=== PATIENT | male | born 1980 | race Caucasian/White ===

== ENCOUNTER 2019-03-18 11:03 | Emergency (ER) | payer SELFPAY ==
[~2019-03-18] VITALS: Ht 160 cm; Wt 72.6 kg
--- NOTE | 2019-03-18 11:20 | ED Cough/URI ---
General Chief Complaint: Cough/Cold/Flu Symptoms Stated Complaint: COUGH Source: patient Exam Limitations: no limitations History of Present Illness Date Seen by Provider: March 18, 2019 Time Seen by Provider: 11:08 Initial Comments 38-year-old white male with history of productive cough and congestion. with brown and greenish sputum. Has had repetitive cough. Describes nasal congestion and sore throat. No known fever or chills. Does not smoke Allergies and Home Medications Allergies Coded Allergies: haloperidol (Verified Allergy, Unknown, 03/18/19) Patient Home Medication List Home Medication List Reviewed: Yes Review of Systems Review of Systems Constitutional: malaise EENTM: see HPI Respiratory: see HPI, cough Cardiovascular: no symptoms reported Gastrointestinal: no symptoms reported Genitourinary: no symptoms reported Musculoskeletal: no symptoms reported Skin: no symptoms reported Psychiatric/Neurological: No Symptoms Reported Hematologic/Lymphatic: No Symptoms Reported Immunological/Allergic: no symptoms reported Past Qmhbcwb-Xajoya-Gxtmql Hx Past Med/Social Hx: Reviewed Nursing Past Med/Soc Hx Physical Exam Vital Signs - First Documented 03/18/19 11:05 Temp 97.7 Pulse 82 Resp 18 B/P (MAP) 123/73 (90) Pulse Ox 98 O2 Delivery Room Air Capillary Refill : Height: '" Weight: lbs. oz. kg; BMI Method: General Appearance: WD/WN, no apparent distress Eyes: Bilateral Eye Normal Inspection, Bilateral Eye PERRL, Bilateral Eye EOMI , Bilateral Eye Abnormal EOM HEENT: PERRL/EOMI, TMs normal; No scleral icterus (R), No scleral icterus (L); pharyngeal erythema; No tonsillar exudate Neck: non-tender, full range of motion, supple, normal inspection, carotid bruit Respiratory: chest non-tender, no respiratory distress, no accessory muscle use , rhonchi (diffusely) Cardiovascular: regular rate, rhythm, no edema, no gallop, no JVD, no murmur Gastrointestinal: normal bowel sounds, non tender, soft, no organomegaly, no pulsatile mass Extremities: normal range of motion, non-tender, normal inspection, no pedal edema Neurologic/Psychiatric: candy spreader II-XII nml as tested, no motor/sensory deficits, alert, normal mood/affect, oriented x 3 Skin: normal color, warm/dry Lymphatic: no adenopathy Progress/Results/Core Measures Suspected Sepsis SIRS Temperature: Pulse: Respiratory Rate: Blood Pressure / Mean: Results/Orders Micro Results Microbiology 03/18/19 Influenza Types A,B Antigen (MARTINA) - Final, Complete My Orders Orders - SANDRA FERNANDO MD Influenza A And B Antigens (03/18/19 11:15) Chest Pa/Lat (2 View) (03/18/19 11:15) Vital Signs/I&O 03/18/19 11:05 Temp 97.7 Pulse 82 Resp 18 B/P (MAP) 123/73 (90) Pulse Ox 98 O2 Delivery Room Air Capillary Refill : Progress Note : Time: 11:19 Progress Note Will test for flu and obtain CXR. Discussed with patient who understands and agrees with plan. Diagnostic Imaging Diagonstic Imaging: Xray (chest) Comments No acute changes. JDO Reviewed: Reviewed by Me Departure Impression Primary Impression: Upper respiratory infection Qualified Codes: J00 - Acute nasopharyngitis [common cold] Additional Impression: Bronchitis Disposition: 01 HOME, SELF-CARE Condition: Stable Departure-Patient Inst. Decision time for Depature: 11:55 Referrals: NO,LOCAL PHYSICIAN (PCP/Family) Primary Care Physician 2-3 days, sooner if needed Patient Instructions: Bacterial Upper Respiratory Infection, Adult (DC), Acute Bronchitis, Adult (DC) Scripts Azithromycin (Azithromycin) 250 Mg Tablet 250 MG PO UD, #6 TAB TAKE 2 TABLETS ON DAY ONE THEN TAKE 1 TABLET DAILY FOR FOUR MORE DAYS Prov: SANDRA FERNANDO MD 03/18/19 Work/School Note: Work Release Form Date Seen in the Emergency Department: March 18, 2019 Return to Work: March 19, 2019 Restrictions: No Restrictions SANDRA FERNANDO MD March 18, 2019 11:20
--- NOTE | 2019-03-18 11:55 | Diagnostic Imaging Report ---
INDICATION: Cough and nasal congestion x4 days. TECHNIQUE: Two view chest 11:18 AM CORRELATION STUDY: None FINDINGS: The heart size, mediastinal configuration and pulmonary vasculature are within normal limits. The lungs are clear with no consolidating infiltrate. There is no significant pleural effusion or pneumothorax. Visualized osseous structures are unremarkable. IMPRESSION: 1. Negative for acute abnormality of the chest. Dictated by: Dictated on workstation # [id number]
[2019-03-18] MEDS ORDERED: AZIT250T12 PO (11:58)
[2019-03-18 12:06] VITALS: BP 123/72
--- OUTSIDE RECORDS SUMMARY | 2019-03-18 13:18 | XMS REPORT | Continuity of Care Document ---
Author Organization Unknown Address Unknown Allergies Active Description Code Type Severity Reaction Onset Reported/Identified Relationship to Patient Clinical Status Yes Haldol Drug Allergy N/A N/A 06/25/2014 Yes Haldol NKMA Severe 728.85 01/29/2015 Medications There is no data. Problems Date Dx Coded Attending Type Code Diagnosis Diagnosed By 06/25/2014 YOMI CARLIN DO 296.89 OTHER AND UNSPECIFIED BIPOLAR DISORDER OTHER 06/25/2014 YOMI CARLIN DO 345.10 GENERALIZED CONVULSIVE EPILEPSY WITHOUT INTRACTABLE EPILEPSY 06/25/2014 YOMI CARLIN DO K 401.1 BENIGN ESSENTIAL HYPERTENSION 06/25/2014 YOMI CARLIN DO 530.81 ESOPHAGEAL REFLUX 06/25/2014 YOMI CARLIN DO 296.89 OTHER AND UNSPECIFIED BIPOLAR DISORDER OTHER 06/25/2014 YOMI CARLIN DO 345.10 GENERALIZED CONVULSIVE EPILEPSY WITHOUT INTRACTABLE EPILEPSY 06/25/2014 YOMI CARLIN DO 401.1 BENIGN ESSENTIAL HYPERTENSION 06/25/2014 YOMI CARLIN DO K 530.81 ESOPHAGEAL REFLUX 09/04/2014 YOMI CARLIN DO 729.1 MYALGIA AND MYOSITIS UNSPECIFIED 01/30/2015 Dany Najera Final 305.1 TOBACCO USE DISORDER 01/30/2015 Dany Najera Reason 569.3 HEMORRHAGE OF RECTUM AND ANUS 01/30/2015 Dany Najera Final 578.1 BLOOD IN STOOL 01/30/2015 Dany Najera Final 789.00 ABDOMINAL PAIN, UNSPECIFIED SITE Procedures There is no data. Results Test Result Range CBC WITH DIFF - 12/26/14 15:58 WBC 6.1 10*3/uL 4.3-10.8 RBC 4.41 10*6/uL 4.70-6.10 HGB 13.8 g/dL 14.0-18.0 HCT 40.4 % 42-52 MCV 92 fL 81-99 MCH 31 pg 26-34 MCHC 34 g/dL 31-37 PLATELET COUNT 209 10*3/uL 150-400 RDWCV 13.9 % 11.5-14.5 DIFF TYPE AUTOMATED DIFF NEUTROPHIL % 53 % 36-66 LYMPHOCYTE % 31 % 24-44 MONOCYTE % 12 % 1-10 EOSINOPHIL % 4 % 0-6 BASOPHIL % 1 % 0-2 ABS. NEUTROPHILS 3.2 10*3/uL 1.55-7.13 ABS. LYMPHOCYTES 1.8 10*3/uL 1.0-4.8 ABS. MONOCYTES 0.7 10*3/uL 0.4-1.08 ABS. EOSINOPHILS 0.2 10*3/uL 0.0-0.65 ABS. BASOPHILS 0.1 10*3/uL 0.0-0.11 ABSOLUTE NUCLEATED RBC 0.00 10*3/uL PERCENT NUCLEATED RBC 0 HEPATIC FUNCTION PANEL - 12/26/14 15:58 ALT-SGPT 26 U/L 0-55 AST-SGOT 28 U/L 5-34 TOTAL PROTEIN,SERUM 7.0 g/dL 6-8.3 ALBUMIN 4.1 g/dL 3.6-5.3 ALKALINE PHOSPHATASE 106 U/L 40-150 TOTAL BILIRUBIN 1.0 mg/dL 0.2-1.2 DIRECT BILIRUBIN 0.3 mg/dL 0.0-0.5 LIPASE - 12/26/14 15:58 LIPASE 64 U/L 8-78 BASIC METABOLIC PANEL POCT - 12/26/14 16:07 POC COMMENT SEE NOTES SODIUM POCT 144 mmol/L 138-146 POTASSIUM POCT 4.2 mmol/L 3.5-4.9 CHLORIDE POCT 108 mmol/L 98-109 MEASURED TOTAL CO2 POCT 25 meq/L 24-29 BUN POCT 9 mg/dL 8-26 CREATININE POCT 1.1 mg/dL 0.6-1.3 GLUCOSE POCT 84 mg/dL 70-105 IONIZED CALCIUM POCT 1.13 mmol/L 1.12-1.32 TROPONIN I POCT - 12/26/14 16:07 CARDIAC TROPONIN I POCT <0.02 ng/mL 0.00-0.10 URINALYSIS POC - 12/26/14 16:10 COLOR, URINE POCT YELLOW APPEARANCE, URINE POCT CLEAR GLUCOSE, URINE POCT NEGATIVE mg/dL NEGATIVE BILIRUBIN, URINE POCT NEGATIVE NEGATIVE KETONES, URINE POCT NEGATIVE mg/dL NEGATIVE SPECIFIC GRAVITY, URINE POCT 1.020 1.005-1.030 BLOOD, URINE POCT NEGATIVE NEGATIVE PH, URINE POCT 7.0 5.0-9.0 PROTEIN, URINE POCT NEGATIVE mg/dL NEGATIVE UROBILINOGEN, URINE POCT 0.2 EhrlichU/dL 0.2-1.0 NITRITES, URINE POCT NEGATIVE NEGATIVE LEUKOCYTES, URINE POCT NEGATIVE NEGATIVE STREP THROAT SCREEN (GROUP A) - STREP THROAT CULTURE (GROUP A) - 01/24/15 09: 26 Microbiology Encounters ACCT No. Visit Date/Time Discharge Status Pt. Type Provider Facility Loc./Unit Complaint [id number] 01/29/2015 15:43:00 01/29/2015 18:31:00 [facility], [facility] [id number] 02/05/2018 14:40:00 02/05/2018 23:59:59 CLS Outpatient KATY KING APRN [facility] [id number] 09/04/2014 14:45:00 09/04/2014 23:59:59 CLS Outpatient YOMI CARLIN DO [id number] 06/25/2014 14:46:00 06/25/2014 23:59:59 CLS Outpatient YOMI CARLIN DO [id number] 12/26/2014 13:10:00 12/26/2014 17:20:00 [facility] 12/26/2014 13:10:59 ACT Document Registration [id number] 01/24/2015 09:01:00 Document Registration
--- OUTSIDE RECORDS SUMMARY | 2019-03-18 13:18 | XMS REPORT | Referral Summary ---
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 Role Phone No PCP, Pt States PCP Encounter VC Date(s): 01/29/15 - 01/29/15 [facility] [address] [place] [address] Discharge Diagnosis: Abdominal pain in male Discharge Disposition: Home or Self Care Attending Physician: Dany Najera MD Admitting Physician: Dany Najera MD Vital Signs Most recent to 1 oldest [Reference Range]: Temperature Oral 36.4 degC [35.8-37.3 degC] (01/29/15 3:51 PM) Peripheral Pulse 78 bpm Rate [60-100 bpm] (01/29/15 3:51 PM) Heart Rate Monitored 74 bpm [60-100 bpm] (01/29/15 6:00 PM) Respiratory Rate 16 br/min [14-20 br/min] (01/29/15 6:00 PM) Blood Pressure 123/68 mmHg [90-140/60-90 mmHg] (01/29/15 6:00 PM) Mean Arterial 91 mmHg Pressure, Cuff (01/29/15 6:00 PM) Most recent to 1 oldest [Reference Range]: SpO2 97 % (01/29/15 6:00 PM) Problem List Condition Effective Dates Status Health Status Informant Asthma(Confirmed) Active patient Fibromyalgia(Confirm Active patient ed) HTN Active patient (hypertension)(Confi rmed) Tobacco Active patient user(Confirmed) Allergies, Adverse Reactions, Alerts Substance Reaction Severity Status Haldol 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 Medications doxepin 100 mg oral capsule caps, Oral, Bedtime (once a day), 0 Refill(s) Start Date: 01/29/15 Status: Ordered gabapentin Oral, 0 Refill(s) Start Date: 01/29/15 Status: Ordered omeprazole Oral, Daily, 0 Refill(s) Start Date: 01/29/15 Status: Ordered Pepcid 20 mg oral tablet 1 tabs, Oral, Daily, # 15 tabs, 0 Refill(s) Start Date: 01/29/15 Stop Date: 02/20/15 Status: Ordered propranolol 0 Refill(s) Start Date: 01/29/15 Status: Ordered Remeron Oral, Bedtime (once a day), 0 Refill(s) Start Date: 01/29/15 Status: Ordered Results Hematology Most recent to 1 oldest [Reference Range]: WBC [4.8-10.8 K/uL] 8.4 K/uL (01/29/15 4:45 PM) RBC [4.60-6.20 M/uL] 4.79 M/uL (01/29/15 4:45 PM) Hgb [14.0-18.0 14.3 gm/dL gm/dL] (01/29/15 4:45 PM) Hct [42.0-52.0 %] 42.7 % (01/29/15 4:45 PM) MCV [82.0-99.0 fL] 89.1 fL (01/29/15 4:45 PM) MCH [27.0-32.0 pg] 29.9 pg (01/29/15 4:45 PM) MCHC [32.0-36.0 33.5 gm/dL gm/dL] (01/29/15 4:45 PM) RDW [11.5-14.5 %] 13.0 % (01/29/15 4:45 PM) Platelet [150-400 269 K/uL K/uL] (01/29/15 4:45 PM) MPV [9.4-12.3 fL] 11.5 fL (01/29/15 4:45 PM) Immature 0.1 % Granulocytes (01/29/15 4:45 PM) [0.0-1.0 %] Neutrophils [51-75 49 % %] *LOW* (01/29/15 4:45 PM) Lymphocytes [20-46 31 % %] (01/29/15 4:45 PM) Monocytes [4-11 %] 8 % (01/29/15 4:45 PM) Eosinophils [0-4 %] 12 % *HI* (01/29/15 4:45 PM) Basophils [0-2 %] 1 % (01/29/15 4:45 PM) Neutro Absolute 4.09 THOUS [1.90-7.00 THOUS] (01/29/15 4:45 PM) Lymph Absolute 2.56 THOUS [0.80-3.30 THOUS] (01/29/15 4:45 PM) Turner Absolute 0.67 THOUS [0.30-1.00 THOUS] (01/29/15 4:45 PM) Eos Absolute 1.02 THOUS [0.00-0.50 THOUS] *HI* (01/29/15 4:45 PM) Baso Absolute 0.04 THOUS [0.00-0.20 THOUS] (01/29/15 4:45 PM) Chemistry Most recent to 1 oldest [Reference Range]: Sodium Lvl [136-144 139 mEq/L mEq/L] (01/29/15 4:45 PM) Potassium Lvl 4.0 mEq/L [3.6-5.1 mEq/L] (01/29/15 4:45 PM) Chloride [99-109 107 mEq/L mEq/L] (01/29/15 4:45 PM) CO2 [22-32 mEq/L] 27 mEq/L (01/29/15 4:45 PM) AGAP [3-20] 5 (01/29/15 4:45 PM) BUN [4-20 mg/dL] 10 mg/dL (01/29/15 4:45 PM) Glucose Lvl [70-100 90 mg/dL mg/dL] (01/29/15 4:45 PM) Creatinine Lvl 0.96 mg/dL [0.64-1.27 mg/dL] (01/29/15 4:45 PM) eGFR [>60] >60 2 (01/29/15 4:45 PM) Calcium Lvl 9.2 mg/dL [8.6-10.0 mg/dL] (01/29/15 4:45 PM) Albumin Lvl [3.5-4.8 4.3 gm/dL gm/dL] (01/29/15 4:45 PM) Total Protein 7.4 gm/dL [6.1-7.9 gm/dL] (01/29/15 4:45 PM) Globulin [1.9-4.3 3.1 gm/dL gm/dL] (01/29/15 4:45 PM) ALT [17-63 unit/L] 24 unit/L (01/29/15 4:45 PM) AST [15-41 unit/L] 21 unit/L (01/29/15 4:45 PM) Alk Phos [26-104 94 unit/L unit/L] (01/29/15 4:45 PM) Bili Total [0.2-1.2 0.9 mg/dL 1 mg/dL] (01/29/15 4:45 PM) Sodium Venous 140 mEq/L [136-144 mEq/L] (01/29/15 4:52 PM) Potassium Venous 4.0 mEq/L 3 [3.6-5.1 mEq/L] (01/29/15 4:52 PM) Calcium Ionized 1.15 mmol/L Venous [1.19-1.41 *LOW* mmol/L] (01/29/15 4:52 PM) Total CO2 Venous 24 mEq/L [25-29 mEq/L] *LOW* (01/29/15 4:52 PM) HGB Venous NPT 14.3 gm/dL [14.0-18.0 gm/dL] (01/29/15 4:52 PM) HCT Venous 42.0 % [42.0-52.0 %] (01/29/15 4:52 PM) Glucose Venous 88 mg/dL [70-100 mg/dL] (01/29/15 4:52 PM) BUN Venous [4-20] 10 (01/29/15 4:52 PM) Creatinine Venous 1.0 mg/dL [0.7-1.2 mg/dL] (01/29/15 4:52 PM) Venous CL [99-109 106 mEq/L mEq/L] (01/29/15 4:52 PM) Anion Gap, Fletcher 10 [3-20] (01/29/15 4:52 PM) 1Result Comment: Naproxen, specifically the metabolite O-desmethylnaproxen, may cause spurious elevation in Total Bilirubin levels. 2Result Comment: Multiply eGFR results by 1.21 for race. 3Result Comment: This test was performed on a whole blood specimen. The presence or absence of hemolysis cannot be assessed. Hemolysis can falsely elevate potassium levels. Normals are for venous specimens only. Urinalysis Most recent to 1 oldest [Reference Range]: UA Color Lt Yellow (01/29/15 4:46 PM) UA Appear Sl Cloudy (01/29/15 4:46 PM) UA pH [5.0-8.0] 8.0 (01/29/15 4:46 PM) UA Leuk Est Negative [Negative] (01/29/15 4:46 PM) UA Nitrite Negative [Negative] (01/29/15 4:46 PM) UA Protein Negative [Negative] (01/29/15 4:46 PM) UA Glucose Negative [Negative] (01/29/15 4:46 PM) UA Ketones Negative [Negative] (01/29/15 4:46 PM) UA Urobilinogen Negative [<1.0] (01/29/15 4:46 PM) UA Bili [Negative] Negative (01/29/15 4:46 PM) UA Blood [Negative] Negative (01/29/15 4:46 PM) UA Spec Grav 1.025 [1.003-1.030] (01/29/15 4:46 PM) Type Clean Catch (01/29/15 4:46 PM) Immunizations No data available for this section Procedures No data available for this section Social History Social History Type Response Smoking Status Current every day smoker; Type: Cigarettes; Tobacco use per day: Less than Pack Assessment and Plan No data available for this section
== END 2019-03-18 12:06 | disposition home or self-care (01) ==
LOC: EDUNIT# 11:03 → ER FS 11:05
DX: J06.9 Acute upper respiratory infection, unspecified (principal); J40 Bronchitis, not specified as acute or chronic; Z88.8 Allergy status to other drugs, medicaments and biological substances
CPT/HCPCS: 71046; 87804

== ENCOUNTER 2019-06-06 20:59 | Emergency (ER) | payer SELFPAY ==
[~2019-06-06] VITALS: Ht 160 cm; Wt 79.4 kg
[~2019-06-06 20:59] MED LIST: AZIT250T12 PO
--- OUTSIDE RECORDS SUMMARY | 2019-06-06 21:03 | XMS REPORT | Continuity of Care Document ---
Author Organization Unknown Address Unknown Allergies Active Description Code Type Severity Reaction Onset Reported/Identified Relationship to Patient Clinical Status Yes Haldol Drug Allergy N/A N/A 06/25/2014 Yes Haldol NKMA Severe 728.85 01/29/2015 Yes haloperidol [id number] Drug Allergy Unknown N/A 03/18/2019 Medications There is no data. Problems Date [...] Najera Final 789.00 ABDOMINAL PAIN, UNSPECIFIED SITE 03/18/2019 KASSIE FANG, SANDRA Cortez Ot J06.9 ACUTE UPPER RESPIRATORY INFECTION, UNSPE 03/18/2019 KASSIE FANG, SANDRA Cortez Ot J40 BRONCHITIS, NOT SPECIFIED ACUTE OR CH 03/18/2019 SANDRA FERNANDO MD Ot R05 COUGH 03/18/2019 KASSIESANDRA LEPE MD, Ot Z88.8 ALLERGY STATUS TO OT DRUG/MEDS/BIOL SUB 03/20/2019 SANDRA FERNANDO MD, Ot J06.9 ACUTE UPPER RESPIRATORY INFECTION, UNSPE 03/20/2019 SANDRA FERNANDO MD, Ot J40 BRONCHITIS, NOT SPECIFIED ACUTE OR CH 03/20/2019 SANDRA FERNANDO MD, Ot R05 COUGH 03/20/2019 SANDRA FERNANDO MD, Ot Z88.8 ALLERGY STATUS TO OT DRUG/MEDS/BIOL SUB Procedures There is no data. Results Test [...] NEGATIVE NEGATIVE LEUKOCYTES, URINE POCT NEGATIVE NEGATIVE Influenza virus A and B antigen detection - 03/18/19 11:21 FLU RESULT NEGATIVE FOR INFLUENZA A AND B ANTIGENS BY IA NRG Encounters ACCT No. Visit Date/Time Discharge Status Pt. Type Provider Facility Loc./Unit Complaint [id number] 01/29/2015 15:43:00 01/29/2015 18:31:00 DIS [facility]vomiting [id number] 03/18/2019 11:05:00 03/18/2019 12:06:00 DIS Emergency KASSIE FANG, SANDRA Cortez [facility] ER FS COUGH [id number] 09/04/2014 14:45:00 09/04/2014 23:59:59 CLS Outpatient YOMI CARLIN DO [id number] 06/25/2014 14:46:00 06/25/2014 23:59:59 CLS Outpatient YOMI CARLIN DO [id number] 12/26/2014 13:10:00 12/26/2014 17:20:00 DIS Emergency [facility]
--- OUTSIDE RECORDS SUMMARY | 2019-06-06 21:03 | XMS REPORT ---
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 Role Phone Migration, Doctor Unavailable Unavailable PROBLEMS Type Condition ICD9-CM Code [id number] Code Onset Dates Condition Status SNOMED Code Problem Other eczema L30.8 Active 71589504 ALLERGIES No Information ENCOUNTERS Encounter Location Date Diagnosis [facility] [address] [id number] [address] Jan, Other eczema L30.8 [facility] [id number] [place] [address] Jun, Screen for STD (sexually transmitted disease) V74.5 [facility] [id number] [place] [address] Feb, [facility] [id number] [place] [address] Feb, [facility] [id number] [address] Nov, [facility] [address] [address] Nov, [facility] [address] [address] Nov, [facility] [address] [address] Nov, [facility] [id number] [place] [address] Oct, [facility] [address] [address] Oct, [facility] [address] [address] Oct, [facility] [address] [facility] [id number], [place] [address] Oct, [facility] [address] [id number], [place] [address] Sep, [facility] [address] [facility] [id number], [place] [address] Sep, [facility] [address] [id number], [place] [address] Aug, [facility] [address] [facility] [id number], [place] [address] Aug, [facility] [address] [facility] [id number], [place] [address] Aug, [facility] [address] [facility] [id number], [place] [address] Aug, [facility] [address] [facility] [id number], [place] [address] Jul, [facility] [address] [facility] [id number], [place] [address] Jul, [facility] [address] [facility] [id number], [place] [address] Jun, [facility] [address] [facility] [id number], [place] [address] Jun, [facility] [address] [facility] [id number], [place] [address] Jun, [facility] [address] [facility] [id number], [place] [address] Jun, IMMUNIZATIONS No Known Immunizations SOCIAL HISTORY Never Assessed REASON FOR VISIT [facility] PLAN OF CARE VITAL SIGNS MEDICATIONS No Known Medications RESULTS No Results PROCEDURES No Known procedures INSTRUCTIONS MEDICATIONS ADMINISTERED No Known Medications MEDICAL (GENERAL) HISTORY Type Description Date Hospitalization History [facility] with multiple broken bones and skull injury 2015
--- OUTSIDE RECORDS SUMMARY | 2019-06-06 21:03 | XMS REPORT ---
Author Author Migration, Doctor Organization [facility] Address Unknown Phone Unavailable Care Team Providers Care Director Radio News Name Role Phone Migration, Doctor Unavailable Unavailable PROBLEMS Type Condition ICD9-CM Code [id number] Code Onset Dates Condition Status SNOMED Code Problem Other eczema L30.8 Active 94468370 ALLERGIES Substance Reaction Event Type Date Status Haldol muscle spasms Drug Allergy Feb, Active ENCOUNTERS Encounter Location Date Diagnosis [facility] [id number] [place] [address] Jan, Other eczema L30.8 [facility] [id number] [address] Jun, Screen for STD (sexually transmitted disease) V74.5 [facility] [id number] [place] [address] Feb, [facility] [id number] [place] [address] Feb, [facility] [address], [place] [address] Nov, [facility] [address], [place] [address] Nov, [facility] [id number] [place] [address] Nov, [facility] [address], [place] [address] Nov, [facility] [address], [place] [address] Oct, [facility] [address], [place] [address] Oct, [facility] [id number], [place] [address] Oct, [facility] [address], [place] [address] Oct, [facility] [address], [place] [address] Sep, [facility] [address], [place] [address] Sep, [facility] [address] [facility] [id number] [address] Aug, [facility] [id number] [place] [id number] Aug, [facility] [id number], [place] [address] Aug, [facility] [id number], [place] [address] Aug, [facility] [id number] [place] [address] Jul, [facility] [id number] [place] [address] Jul, [facility] [id number] [address] Jun, [facility] [address] [place] [address] Jun, [facility] [id number] [address] Jun, [facility] [address] [place] [address] Jun, IMMUNIZATIONS No Known Immunizations SOCIAL HISTORY Never Assessed REASON FOR VISIT [facility]MR-[facility] [place] PLAN OF CARE VITAL SIGNS MEDICATIONS Medication Instructions Dosage Frequency Start Date End Date Duration Status propranolol 40 mg 1 Tablet by Oral route 2 times per day Aug, Active Omeprazole 20 mg take 1 capsule by Oral route before a meal 2 times per day before meals Aug, Active Mirtazapine 15 mg 1 tablet by Oral route 2 times per day Aug, Active Gabapentin 300 mg 1 capsule by Oral route 1 time per day AT /[facility] Aug, Active doxepin 100 mg 1 Tablet by Po route 2 times per day Aug, Active RESULTS No Results PROCEDURES No Known procedures INSTRUCTIONS MEDICATIONS ADMINISTERED No Known Medications MEDICAL (GENERAL) HISTORY Type Description Date Hospitalization History [facility] with multiple broken bones and skull injury 2015
--- NOTE | 2019-06-06 21:09 | ED Upper Extremity ---
General Chief Complaint: Upper Extremity Stated Complaint: RT HAND INJ Source: patient Exam Limitations: no limitations History of Present Illness Date Seen by Provider: Jun 06, 2019 Time Seen by Provider: 21:05 Initial Comments The patient is a 38-year-old male presents for evaluation of a left hand injury. 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 He has pain over the left thumb, dorsal aspect of the hand near the third fourth and fifth metacarpals, and also the wrist. He denies previous injuries to the hand. He is alert, calm, and appears to be in no distress. He has no other complaints. Onset: this afternoon Severity: moderate Method of Injury: direct blow Modifying Factors: Improves With Pain Medication (Ibuprofen - no help) Allergies and Home Medications Allergies Coded Allergies: haloperidol (Verified Allergy, Unknown, 03/18/19) Home Medications Azithromycin 250 Mg Tablet, 250 MG PO UD TAKE 2 TABLETS ON DAY ONE THEN TAKE 1 TABLET DAILY FOR FOUR MORE DAYS Prescribed by: SANDRA FERNANDO on 03/18/19 1158 Patient Home Medication List Home Medication List Reviewed: Yes Review of Systems Constitutional: no symptoms reported EENTM: no symptoms reported Respiratory: no symptoms reported Cardiovascular: no symptoms reported Gastrointestinal: no symptoms reported Genitourinary: no symptoms reported Musculoskeletal: other (left hand and wrist pain) Skin: no symptoms reported Psychiatric/Neurological: No Symptoms Reported All Other Systems Reviewed Negative Unless Noted: Yes Past Ufxezvy-Mtueii-Yzxlby Hx Past Med/Social Hx: Reviewed Nursing Past Med/Soc Hx Patient Social History 2nd Hand Smoke Exposure: No Recent Foreign Travel: No Contact w/Someone Who Travel: No Recent Hopitalizations: No Seasonal Allergies Seasonal Allergies: No Past Medical History Respiratory: No Cardiac: No Neurological: No Genitourinary: No Gastrointestinal: No Musculoskeletal: No Endocrine: No HEENT: No Cancer: No Integumentary: No Physical Exam Vital Signs Vital Signs - First Documented 06/06/19 21:05 Temp 98.6 Pulse 79 Resp 20 B/P (MAP) 151/103 (119) Pulse Ox 97 O2 Delivery Room Air Capillary Refill : Height, Weight, BMI Height: 5'3.00" Weight: 160lbs. oz. 72.550582pk; BMI Method:Stated General Appearance: WD/WN, no apparent distress HEENT: PERRL/EOMI, normal ENT inspection Cardiovascular: regular rate, rhythm, no edema Respiratory: chest non-tender, normal breath sounds, no respiratory distress Gastrointestinal: normal bowel sounds, non tender, soft Wrist: Yes bone tenderness (left dorsal wrist); No deformity Hand: bone tenderness (left thumb ttp with some swelling and a moderate subungual hematoma, left dorsal proximal 4th and 5th metacarpals) Neurologic/Psychiatric: ui lead developer II-XII nml as tested, alert, normal mood/affect, oriented x 3 Skin: normal color, warm/dry Progress/Results/Core Measures Results/Orders My Orders Orders - BERNABE RICARDO DO Hand 3 View Left (06/06/19 21:04) Wrist 3 View Left (06/06/19 21:04) Ice: Apply To Affected Area (06/06/19 21:04) Vital Signs/I&O 06/06/19 21:05 Temp 98.6 Pulse 79 Resp 20 B/P (MAP) 151/103 (119) Pulse Ox 97 O2 Delivery Room Air Progress Progress Note : Progress Note @2125 - Nail trephination performed with cautery. The patient tolerated the procedure well. He'll go with a prescription for Austin. AlumaFoam splint applied. The patient follow up with his PCP in the next 2-3 days. The patient likely has a nondisplaced distal/tuft fracture of the thumb on the left. Departure Impression Primary Impression: Fracture of thumb, left, closed Additional Impression: Subungual hematoma of left thumb Disposition: 01 HOME, SELF-CARE Condition: Stable Departure-Patient Inst. Decision time for Depature: 21:25 Referrals: NO,LOCAL PHYSICIAN (PCP/Family) Primary Care Physician Patient Instructions: Finger Fracture Add. Discharge Instructions: Take the medication as prescribed. Follow-up with your doctor in the next 2-3 days. Return to the ER for new or worsening symptoms Scripts Hydrocodone/Acetaminophen (Austin 5-325 Tablet) 1 Each Tablet 1 TAB PO Q4-6HR for Pain MDD 10 TABS for 5 Days, #15 TAB Prov: BERNABE RICARDO DO 06/06/19 BERNABE RICARDO DO Jun 06, 2019 21:09
[2019-06-06] MEDS ORDERED: HYDR-4226 PO (21:26)
[2019-06-06 21:42] VITALS: BP 145/95
[2019-06-06] MEDS ORDERED: HYDROcodone/APAP 5 MG/325 MG (LORTAB) TAB PO ONE (21:45)
--- NOTE | 2019-06-10 14:20 | Diagnostic Imaging Report ---
Examination: Left hand, 3 views; left wrist, 3 views Indication: Traumatic left hand/wrist pain. Comparison: None available. Findings: Well corticated irregularity involving the tuft of the distal phalanx of the first digit is likely chronic and not related to trauma. Otherwise, no fracture or acute osseous abnormalities noted. Bony alignment is maintained. No significant arthritic change is noted. Carpal configuration is normal. Soft tissues are unremarkable. Impression: Well-corticated irregularity involving the tuft of the distal phalanx of the first digit is likely chronic. Recommend correlation with history and physical exam to exclude acute fracture in this area. Otherwise, no acute fracture or dislocation involving the hand/wrist. Dictated by: Dictated on workstation # [id number]
--- NOTE | 2019-06-10 14:24 | RADIOLOGY REPORT ---
NAME: DILLAN BURLESON [facility] REC#: [id number] PT STATUS: DEP ER : 1980 PHYSICIAN: BERNABE RICARDO DO ADMIT DATE: 06/06/19/ER FS CORRECTED Signed Date of Exam:06/06/19 WRIST 3 VIEW LEFT Examination: Left hand, 3 views; left wrist, 3 views Indication: Traumatic left hand/wrist pain. Comparison: None available. Findings: Well corticated irregularity involving the tuft of the distal phalanx of the first digit is likely chronic and not related to trauma. Otherwise, no fracture or acute osseous abnormalities noted. Bony alignment is maintained. No significant arthritic change is noted. Carpal configuration is normal. Soft tissues are unremarkable. Impression: Well-corticated irregularity involving the tuft of the distal phalanx of the first digit is likely chronic. Recommend correlation with history and physical exam to exclude acute fracture in this area. Otherwise, no acute fracture or dislocation involving the hand/wrist. Dictated by: Dictated on workstation # [id number] Dict: 06/06/19 2149 Trans: 06/10/19 1419 MOJGAN [id number] Interpreted by: DILLAN DEWITT DO Electronically signed by: DILLAN DEWITT DO 06/10/19 1419 MTDD
== END 2019-06-06 21:43 | disposition home or self-care (01) ==
LOC: EDUNIT# 20:59 → ER FS 21:00
DX: S62.525A Nondisplaced fracture of distal phalanx of left thumb, initial encounter for closed fracture (principal); Z88.8 Allergy status to other drugs, medicaments and biological substances; W22.8XXA Striking against or struck by other objects, initial encounter; Y92.59 Other trade areas as the place of occurrence of the external cause; Y99.0 Civilian activity done for income or pay
CPT/HCPCS: 73110; 73130

== ENCOUNTER 2020-02-10 08:58 | Emergency (ER) | payer SELFPAY ==
[~2020-02-10] VITALS: Ht 160 cm; Wt 86.7 kg
[~2020-02-10 08:58] MED LIST changes: +HYDR-4226 PO
[2020-02-10] MEDS ORDERED: FAMOTIDINE 20MG/2ML IV (PEPCID) IVP ONE (09:15)
--- OUTSIDE RECORDS SUMMARY | 2020-02-10 09:18 | XMS REPORT ---
Author Author Panchito Bustillo Organization [facility] Address Unknown Care Team Providers Care Director Nursing Service Name Role Phone ISAI Bustillo Unavailable PROBLEMS Type Condition ICD9-CM Code MOQ83-LH Code Onset Dates Condition S tatus SNOMED Code Problem Other eczema L30.8 Active [id number] 0 ALLERGIES No Information ENCOUNTERS Encounter Location Date Diagnosis [facility] [address] [id number] [address] [place] [phone] Jan, Other eczema L30.8 [facility] [address] [facility] [id number] [address] [place] [phone] Jun, Screen for STD (sexually tra nsmitted disease) V74.5 [facility] [address] [id number] [address] [place] [phone] Feb, [facility] [address] [facility] [id number] [address] [place] [phone] Feb, [facility] [address] [facility] [id number] [address] [place] [phone] Nov, [facility] [address] [facility] [id number] [address] [place] [phone] Nov, [facility] [address] [facility] [id number] [address] [place] [phone] Nov, [facility] [address] [facility] [id number] [address] [place] [phone] Nov, [facility] [address] [facility] [id number] [address] [place] [phone] Oct, [facility] [address] [facility] [id number] [address] [place] [phone] Oct, [facility] [address] [id number] [address] [place] [phone] Oct, [facility] [address] [id number] [address] [place] [phone] Oct, [facility] [address] [id number] [address] [place] [phone] Sep, [facility] [address] [id number] [address] [place] [phone] Sep, [facility] [address] [id number] [address] [place] [phone] Aug, [facility] [address] [id number] [address] [place] [phone] Aug, [facility] [address] [id number] [address] [place] [phone] Aug, [facility] [address] [id number] [address] [place] [phone] Aug, [facility] [address] [id number] [address] [place] [phone] Jul, [facility] [address] [id number] [address] [place] [phone] Jul, [facility] [address] [id number] [address] [place] [phone] Jun, [facility] [address] [id number] [address] [place] [phone] Jun, [facility] [address] [id number] [address] [place] [phone] Jun, [facility] [address] [id number] [address] [place] [phone] Jun, IMMUNIZATIONS No Known Immunizations SOCIAL HISTORY Never Assessed REASON FOR VISIT PLAN OF CARE VITAL SIGNS MEDICATIONS No Known Medications RESULTS No Results PROCEDURES No Known procedures INSTRUCTIONS MEDICATIONS ADMINISTERED No Known Medications MEDICAL (GENERAL) HISTORY Type Description Date Hospitalization History you barfield with multiple broken bones and skull injury 2016
--- OUTSIDE RECORDS SUMMARY | 2020-02-10 09:18 | XMS REPORT ---
Author Author Panchito KING Organization [facility] Address [address] [place] [address] Care Team Providers Care Inside Account Executive Name Role Phone KATY KING Unavailable PROBLEMS Type Condition ICD9-CM Code XKS06-TW Code Onset Dates Condition S tatus SNOMED Code Problem Other eczema L30.8 Active [id number] 0 ALLERGIES No Information ENCOUNTERS Encounter Location Date Diagnosis [facility] [address] [facility] [id number] [address] [place] [phone] May, [facility] [address] [facility] [id number] [address] [place] [phone] Jan, Other eczema L30.8 [facility] [address] [facility] [id number] [address] [place] [phone] Jun, Screen for STD (sexually tra nsmitted disease) V74.5 [facility] [address] [facility] [id number] [address] [place] [phone] Feb, [facility] [address] [facility] [id number] [address] [place] [phone] Feb, [facility] [address] [facility] [id number] [address] [place] [phone] Nov, [facility] [address] [facility] [id number] [address] [place] [phone] Nov, [facility] [address] [facility] [id number] [address] [place] [phone] Nov, [facility] [address] [facility] [id number] [address] [place] [phone] Nov, [facility] [address] [facility] [id number] [address] [place] [phone] Oct, [facility] [address] [id number] [address] [place] [address], [place] [phone] Oct, [facility] [address] [id number] [address] [place] [phone] Oct, [facility] [address] [id number] [address] [place] [phone] Oct, [facility] [address] [id number] [address] [place] [phone] Sep, [facility] [address] [id number] [address] [place] [phone] Sep, [facility] [address] [id number] [address] [place] [phone] Aug, [facility] [address] [id number] [address] [place] [phone] Aug, [facility] [address] [id number] [address] [place] [phone] Aug, [facility] [address] [id number] [address] [place] [phone] Aug, [facility] [address] [id number] [address] [place] [phone] Jul, [facility] [address] [id number] [address] [place] [phone] Jul, [facility] [address] [id number] [address] [place] [phone] Jun, [facility] [address] [id number] [address] [place] [phone] Jun, [facility] [address] [id number] [address] [place] [phone] Jun, [facility] [address] [id number] [address] [place] [phone] Jun, IMMUNIZATIONS No Known Immunizations SOCIAL HISTORY Never Assessed REASON FOR VISIT PLAN OF CARE VITAL SIGNS Height 63 in 2014-06-25 Weight 174.6 lbs 2014-06-25 Temperature 97 degrees Fahrenheit 2014-06-25 Heart Rate 60 bpm 2014-06-25 Respiratory Rate 16 2014-06-25 Blood pressure systolic 124 mmHg 2014-06-25 Blood pressure diastolic 94 mmHg 2014-06-25 MEDICATIONS Unknown Medications RESULTS No Results PROCEDURES Procedure Date Ordered Result Body Site COMPLETE CBC W/AUTO DIFF WBC Jun 25, 2014 ASSAY THYROID STIM HORMONE Jun 25, 2014 COMPREHEN METABOLIC PANEL Jun 25, 2014 VENIPUNCT, ROUTINE* Jun 25, 2014 INSTRUCTIONS MEDICATIONS ADMINISTERED No Known Medications MEDICAL (GENERAL) HISTORY Type Description Date Hospitalization History you ontiverosianovic medic al with multiple broken bones and skull injury 2015
--- OUTSIDE RECORDS SUMMARY | 2020-02-10 09:18 | XMS REPORT ---
Author Author Panchito KING Organization [facility] Address [address] [place] [address] Care Team Providers Care Surveyor Oil Well Directional Name Role Phone KATY KING Unavailable PROBLEMS Type Condition ICD9-CM Code TEZ03-DT Code Onset Dates Condition S tatus SNOMED Code Problem Other eczema L30.8 Active 0817329 0 ALLERGIES No Information ENCOUNTERS Encounter Location Date Diagnosis [facility] [address] [facility] [id number] [address] [place] [phone] May, [facility] [address] [facility] [id number] [address] [place] [phone] Jan, Other eczema L30.8 [facility] [address] [facility] [id number] [address] [place] [phone] Jun, Screen for STD (sexually tra nsmitted disease) V74.5 [facility] [address] [facility] [id number] [address] [place] [phone] Feb, [facility] [address] [facility] [id number] [address] [place] [phone] Feb, [facility] [address] [facility] [id number] [address] [place] [phone] Nov, [facility] [address] [facility] [id number] [address] [place] [phone] Nov, [facility] [address] [facility] [id number] [address] [place] [phone] Nov, [facility] [address] [facility] [id number] [address] [place] [phone] Nov, [facility] [address] [facility] [id number] [address] [place] [phone] Oct, [facility] [address] [id number] [address] [place] [address], [place] [phone] Oct, [facility] [address] [id number] [address] [place] [phone] Oct, [facility] [address] [id number] [address] [place] [phone] Oct, [facility] [address] [id number] [address] [place] [phone] Sep, [facility] [address] [id number] [address] [place] [phone] Sep, [facility] [address] [id number] [address] [place] [phone] Aug, [facility] [address] [id number] [address] [place] [phone] Aug, [facility] [address] [id number] [address] [place] [phone] Aug, [facility] [address] [id number] [address] [place] [phone] Aug, [facility] [address] [id number] [address] [place] [phone] Jul, [facility] [address] [id number] [address] [place] [phone] Jul, [facility] [address] [id number] [address] [place] [phone] Jun, [facility] [address] [id number] [address] [place] [phone] Jun, [facility] [address] [id number] [address] [place] [phone] Jun, [facility] [address] [id number] [address] [place] [phone] Jun, IMMUNIZATIONS No Known Immunizations SOCIAL HISTORY Never Assessed REASON FOR VISIT PLAN OF CARE VITAL SIGNS MEDICATIONS Unknown Medications RESULTS No Results PROCEDURES No Known procedures INSTRUCTIONS MEDICATIONS ADMINISTERED No Known Medications MEDICAL (GENERAL) HISTORY Type Description Date Hospitalization History you barfield with multiple broken bones and skull injury 2016
--- OUTSIDE RECORDS SUMMARY | 2020-02-10 09:18 | XMS REPORT ---
Author Author Panchito LINTON Organization [facility] Address [address] [place] [address] Care Team Providers Care Industrial Relations Specialist Name Role Phone MINNA LINTON Unavailable PROBLEMS Type Condition ICD9-CM Code HUY59-GI Code Onset Dates Condition S tatus SNOMED Code Problem Other eczema L30.8 Active 0032262 0 ALLERGIES No Information ENCOUNTERS Encounter Location Date Diagnosis [facility] [address] [facility] [id number] [address] [place] [phone] May, [facility] [address] [place] [id number] [address] [place] [phone] Jan, Other eczema L30.8 [facility] [address] [place] [id number] [address] [place] [phone] Jun, Screen for STD (sexually tra nsmitted disease) V74.5 [facility] [address] [place] [id number] [address] [place] [phone] Feb, [facility] [address] [place] [id number] [address] [place] [phone] Feb, [facility] [address] [facility] [id number] [address] [place] [phone] Nov, [facility] [address] [facility] [id number] [address] [place] [phone] Nov, [facility] [address] [place] [id number] [address] [place] [phone] Nov, [facility] [address] [facility] [id number] [address] [place] [phone] Nov, [facility] [address] [place] [id number] [address] [place] [phone] Oct, [facility] [address] [id number] [address] [place] [phone] Oct, [facility] [address] [id number] [address] [place] [phone] Oct, [facility] [address] [id number] [address] [place] [phone] Oct, [facility] [address] [id number] [address] [place] [phone] Sep, [facility] [address] [id number] [address] [place] [phone] Sep, [facility] [address] [id number] [address] [place] [phone] Aug, [facility] [address] [id number] [address] [place] [phone] Aug, [facility] [address] [id number] [address] [place] [phone] Aug, [facility] [address] [id number] [address] [place] [phone] Aug, [facility] [address] [id number] [address] [place] [phone] Jul, [facility] [address] [id number] [address] [place] [phone] Jul, [facility] [address] [id number] [address] [place] [phone] Jun, [facility] [address] [id number] [address] [place] [phone] Jun, [facility] [address] [id number] [address] [place] [id number] Jun, [facility] [address] [id number] [address] [place] [phone] Jun, IMMUNIZATIONS No Known Immunizations SOCIAL HISTORY Never Assessed REASON FOR VISIT PLAN OF CARE VITAL SIGNS MEDICATIONS Unknown Medications RESULTS No Results PROCEDURES No Known procedures INSTRUCTIONS MEDICATIONS ADMINISTERED No Known Medications MEDICAL (GENERAL) HISTORY Type Description Date Hospitalization History you barfield with multiple broken bones and skull injury 2016
--- OUTSIDE RECORDS SUMMARY | 2020-02-10 09:18 | XMS REPORT ---
Author Author Panchito KING Organization [facility] Address [address] [place] [address] Care Team Providers Care Photo Machine Operator Name Role Phone KATY KING Unavailable PROBLEMS Type Condition ICD9-CM Code ZRU74-LZ Code Onset Dates Condition S tatus SNOMED Code Problem Other eczema L30.8 Active 5797556 0 ALLERGIES No Information ENCOUNTERS Encounter Location Date Diagnosis [facility] [address] [facility] [id number] [address] [place] [phone] May, [facility] [address] [facility] [id number] [address] [place] [phone] Jan, Other eczema L30.8 [facility] [address] [facility] [id number] [address] [place] [phone] Jun, Screen for STD (sexually tra nsmitted disease) V74.5 [facility] [address] [facility] [id number] [address] [place] [phone] Feb, [facility] [address] [facility] [id number] [address] [place] [phone] Feb, [facility] [address] [facility] [id number] [address] [place] [phone] Nov, [facility] [address] [facility] [id number] [address] [place] [phone] Nov, [facility] [address] [facility] [id number] [address] [place] [phone] Nov, [facility] [address] [facility] [id number] [address] [place] [phone] Nov, [facility] [address] [facility] [id number] [address] [place] [phone] Oct, [facility] [address] [id number] [address] [place] [address], [place] [phone] Oct, [facility] [address] [id number] [address] [place] [phone] Oct, [facility] [address] [id number] [address] [place] [phone] Oct, [facility] [address] [id number] [address] [place] [phone] Sep, [facility] [address] [id number] [address] [place] [phone] Sep, [facility] [address] [id number] [address] [place] [phone] Aug, [facility] [address] [id number] [address] [place] [phone] Aug, [facility] [address] [id number] [address] [place] [phone] Aug, [facility] [address] [id number] [address] [place] [phone] Aug, [facility] [address] [id number] [address] [place] [phone] Jul, [facility] [address] [id number] [address] [place] [phone] Jul, [facility] [address] [id number] [address] [place] [phone] Jun, [facility] [address] [id number] [address] [place] [phone] Jun, [facility] [address] [id number] [address] [place] [phone] Jun, [facility] [address] [id number] [address] [place] [phone] Jun, IMMUNIZATIONS No Known Immunizations SOCIAL HISTORY Never Assessed REASON FOR VISIT PLAN OF CARE VITAL SIGNS Height 63 in 2014-09-04 Weight 176.1 lbs 2014-09-04 Temperature 96.9 degrees Fahrenheit 2014-09-04 Heart Rate 64 bpm 2014-09-04 Respiratory Rate 16 2014-09-04 Blood pressure systolic 128 mmHg 2014-09-04 Blood pressure diastolic 90 mmHg 2014-09-04 MEDICATIONS Unknown Medications RESULTS No Results PROCEDURES No Known procedures INSTRUCTIONS MEDICATIONS ADMINISTERED No Known Medications MEDICAL (GENERAL) HISTORY Type Description Date [facility]
--- OUTSIDE RECORDS SUMMARY | 2020-02-10 09:18 | XMS REPORT ---
Author Author Panchito KING Organization [facility] Address [address] [place] [address] Care Team Providers Care Cutter Tender Name Role Phone KATY KING Unavailable PROBLEMS Type Condition ICD9-CM Code MLY32-HE Code Onset Dates Condition S tatus SNOMED Code Problem Other eczema L30.8 Active 6415171 0 ALLERGIES No Information ENCOUNTERS Encounter Location Date Diagnosis [facility] [address] [facility] [id number] [address] [place] [phone] May, [facility] [address] [facility] [id number] [address] [place] [phone] Jan, Other eczema L30.8 [facility] [address] [facility] [id number] [address] [place] [phone] Jun, Screen for STD (sexually tra nsmitted disease) V74.5 [facility] [address] [facility] [id number] [address] [place] [phone] Feb, [facility] [address] [facility] [id number] [address] [place] [phone] Feb, [facility] [address] [facility] [id number] [address] [place] [phone] Nov, [facility] [address] [facility] [id number] [address] [place] [phone] Nov, [facility] [address] [facility] [id number] [address] [place] [phone] Nov, [facility] [address] [facility] [id number] [address] [place] [phone] Nov, [facility] [address] [facility] [id number] [address] [place] [phone] Oct, [facility] [place] [address] [id number] [address] [place] [address], [place] [address] Oct, [facility] [address] [id number] [address] [place] [phone] Oct, [facility] [place] [address] [id number] [address] [place] [phone] Oct, [facility] [address] [id number] [address] [place] [phone] Sep, [facility] [address] [id number] [address] [place] [phone] Sep, [facility] [address] [id number] [address] [place] [phone] Aug, [facility] [place] [address] [id number] [address] [place] [phone] Aug, [facility] [address] [id number] [address] [place] [phone] Aug, [facility] [place] [address] [id number] [address] [place] [phone] Aug, [facility] [address] [id number] [address] [place] [phone] Jul, [facility] [place] [address] [id number] [address] [place] [phone] Jul, [facility] [address] [id number] [address] [place] [phone] Jun, [facility] [place] [address] [id number] [address] [place] [phone] Jun, [facility] [place] [address] [id number] [address] [place] [phone] Jun, [facility] [place] [address] [id number] [address] [place] [phone] Jun, IMMUNIZATIONS No Known Immunizations SOCIAL HISTORY Never Assessed REASON FOR VISIT PLAN OF CARE VITAL SIGNS MEDICATIONS Unknown Medications RESULTS No Results PROCEDURES No Known procedures INSTRUCTIONS MEDICATIONS ADMINISTERED No Known Medications MEDICAL (GENERAL) HISTORY Type Description Date Hospitalization History you [facility] with multiple broken bones and skull injury 2016
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
[2020-02-10] MEDS: NITROGLYCERIN 0.4 MG SL TABS BTL 25'S SL ONE (09:19)
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
--- NOTE | 2020-02-10 09:20 | ED Chest Pain ---
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 Pain located center of lower chest and upper abdomen and radiating to left chest from there. Has been having frequent episodes like this daily for the past month. Denies Hx of heart disease. Smokes THC every night. Rare ETOH. Allergies and Home Medications Allergies Coded Allergies: haloperidol (Verified Allergy, Unknown, 03/18/19) Home Medications Albuterol Sulfate 1 Puff Puff, 2 PUFF IH Q4H 1 PUFF = 90 MCG Prescribed by: KOURTNEY WHITE on 02/10/20 1039 Famotidine 20 Mg Tablet, 20 MG PO BID Prescribed by: KOURTNEY CRUMSTCHANTAL on 02/10/20 1039 Nitroglycerin 0.4 Mg Tab.subl, 0.4 MG SL UD PRN for CHEST PAIN Prescribed by: KOURTNEY CRUMSTCHANTAL on 02/10/20 1039 Patient Home Medication List Home Medication List Reviewed: Yes Review of Systems Review of Systems Constitutional: see HPI; No chills; diaphoresis; No dizziness, No fever, No malaise, No weakness Respiratory: Denies Cough, Denies Orthopnea; Shortness of Air (with the pain) Cardiovascular: See HPI, Chest Pain; Denies Edema, Denies Irregular Heart Rate, Denies Lightheadedness, Denies Palpitations, Denies Syncope Gastrointestinal: See HPI, Abdominal Pain; Denies Constipated, Denies Diarrhea, Denies Nausea, Denies Poor Appetite, Denies Vomiting; Other (States he has intermittently been having dark stools) Musculoskeletal: No back pain, No joint pain Skin: No change in color, No rash Psychiatric/Neurological: Denies Headache, Denies Numbness, Denies Paresthesia Past Isigbik-Svgidy-Eaqzpc Hx Past Med/Social Hx: Reviewed Nursing Past Med/Soc Hx Patient Social History 2nd Hand Smoke Exposure: No Recent Foreign Travel: No Contact w/Someone Who Travel: No Recent Hopitalizations: No Seasonal Allergies Seasonal Allergies: No Past Medical History Surgeries: No Respiratory: No Cardiac: No Neurological: No Genitourinary: No Gastrointestinal: No Musculoskeletal: No Endocrine: No HEENT: No Cancer: No Psychosocial: Yes Integumentary: No Physical Exam Vital Signs Vital Signs - First Documented 02/10/20 08:58 Temp 36.2 Pulse 69 Resp 28 B/P (MAP) 180/122 (141) Pulse Ox 99 O2 Delivery Room Air Capillary Refill : Height, Weight, BMI Height: 5'3.00" Weight: 175lbs. oz. 79.395566yu; BMI Method:Stated General Appearance: WD/WN, Anxious HEENT: PERRL/EOMI, Normal ENT Inspection Neck: Normal Inspection, Non Tender, Supple Respiratory: Lungs Clear, Normal Breath Sounds, No Accessory Muscle Use Cardiovascular: Regular Rate, Rhythm, No Edema, No Gallop, Normal Peripheral Pulses Gastrointestinal: Soft (tenderness epigatric area); No Distended, No Guarding, No Hernia, No Mass, No Rebound, No Splenomegaly Extremity: Normal Capillary Refill, Normal Inspection, Non Tender, No Calf Tenderness Neurologic/Psychiatric: Alert, Oriented x3, No Motor/Sensory Deficits, Normal Mood/Affect Skin: Normal Color, Warm/Dry Progress/Results/Core Measures Results/Orders Lab Results Laboratory Tests Test 02/10/20 09:15 Range/Units White Blood Count 10.6 4.3-11.0 10^3/uL Red Blood Count 4.66 4.35-5.85 10^6/uL Hemoglobin 14.2 13.3-17.7 G/DL Hematocrit 42 40-54 % Mean Corpuscular Volume 89 80-99 FL Mean Corpuscular Hemoglobin 30 25-34 PG Mean Corpuscular Hemoglobin Concent 34 32-36 G/DL Red Cell Distribution Width 13.5 10.0-14.5 % Platelet Count 253 130-400 10^3/uL Mean Platelet Volume 10.9 H 7.4-10.4 FL Neutrophils (%) (Auto) 66 42-75 % Lymphocytes (%) (Auto) 21 12-44 % Monocytes (%) (Auto) 9 0-12 % Eosinophils (%) (Auto) 3 0-10 % Basophils (%) (Auto) 0 0-10 % Neutrophils # (Auto) 7.0 1.8-7.8 X 10^3 Lymphocytes # (Auto) 2.3 1.0-4.0 X 10^3 Monocytes # (Auto) 1.0 0.0-1.0 X 10^3 Eosinophils # (Auto) 0.3 0.0-0.3 10^3/uL Basophils # (Auto) 0.0 0.0-0.1 10^3/uL D-Dimer 0.29 0.00-0.49 UG/ML Sodium Level 138 135-145 MMOL/L Potassium Level 3.9 3.6-5.0 MMOL/L Chloride Level 102 98-107 MMOL/L Carbon Dioxide Level 23 21-32 MMOL/L Anion Gap 13 5-14 MMOL/L Blood Urea Nitrogen 19 H 7-18 MG/DL Creatinine 0.96 0.60-1.30 MG/DL Estimat Glomerular Filtration Rate > 60 BUN/Creatinine Ratio 20 Glucose Level 110 H 70-105 MG/DL Calcium Level 9.2 8.5-10.1 MG/DL Corrected Calcium 9.0 8.5-10.1 MG/DL Total Bilirubin 0.3 0.1-1.0 MG/DL Aspartate Amino Transf (AST/SGOT) 17 5-34 U/L Alanine Aminotransferase (ALT/SGPT) 18 0-55 U/L Alkaline Phosphatase 114 40-136 U/L Troponin I < 0.30 <0.30 NG/ML Total Protein 7.2 6.4-8.2 GM/DL Albumin 4.3 3.2-4.5 GM/DL My Orders Orders - ROVENSTINEKOURTNEY DO Ed Iv/Invasive Line Start (02/10/20 09:09) Ekg Tracing (02/10/20 09:09) Chest 1 View Ap/Pa Only (02/10/20 09:09) Cbc With Automated Diff (02/10/20 09:09) Comprehensive Metabolic Panel (02/10/20 09:09) Troponin I Fs (02/10/20 09:09) Fibrin Degradation Products (02/10/20 09:09) Aspirin Chewable Tablet (Baby Aspirin Ch (02/10/20 09:15) Famotidine Injection (Pepcid Injection) (02/10/20 09:15) Nitroglycerin 0.4 Mg Btl 25's (Nitrostat (02/10/20 09:10) Aspirin Chewable Tablet (Baby Aspirin Ch (02/10/20 09:30) Nitroglycerin 0.4 Mg Btl 25's (Nitrostat (02/10/20 09:30) Antacid Suspension (Mylanta Suspension (02/10/20 10:45) Lidocaine 2% Viscous 15 Ml (Xylocaine Vi (02/10/20 10:45) Medications Given in ED Current Medications Medications Dose Ordered Sig/Stanford Route Start Time Stop Time Status Last Admin Dose Admin Aspirin 324 mg ONCE ONCE PO 02/10/20 09:30 02/10/20 09:31 DC 02/10/20 09:31 324 MG Famotidine 20 mg ONCE ONCE IVP 02/10/20 09:15 02/10/20 09:16 DC 02/10/20 09:27 20 MG Nitroglycerin 0.4 mg NEEDED PRN SL 02/10/20 09:30 02/10/20 09:19 0.4 MG Vital Signs/I&O 02/10/20 02/10/20 08:58 08:58 Temp 36.2 Pulse 69 Resp 28 B/P (MAP) 180/122 (141) Pulse Ox 99 O2 Delivery Room Air Room Air Progress Progress Note : Progress Note Chest pain resolved, still having some epigastric pain, admits he has been having both types of pain daily and smokes marijuana daily for anxiety and a previous head injury. Has an inhaler at home, but it is a couple years old....occasionally gets soa and asks for a refill. Lives in town, but does not have a PCP. Discussed f/u w Cardio to consider stress ECG. Also advised calling 911 or returning to the nearest ER if CP reoccurs and is more severe or changes in character. Also encouraged to stop smoking marijuana. Work excuse written for the next 2 days. Initial ECG Intervals: Normal EKG : EKG Time: 08:58 Rhythm: Normal Sinus Intervals: Normal ECG Comparisson: No Previous ECG Available Departure Impression Primary Impression: Chest pain Qualified Codes: R07.9 - Chest pain, unspecified Additional Impression: Epigastric abdominal pain Disposition: HOME, SELF-CARE Condition: Improved Departure-Patient Inst. Decision time for Depature: 10:37 Referrals: Marce SOTELO MD, BASHAR J MD NO,LOCAL PHYSICIAN (PCP) Primary Care Physician Patient Instructions: Acute Abdomen (Belly Pain), Adult (DC), Chest Pain (DC) Scripts Nitroglycerin (Nitroglycerin) 0.4 Mg Tab.subl 0.4 MG SL UD PRN for CHEST PAIN, #20 TAB Prov: KOURTNEY WHITE DO 02/10/20 Albuterol Sulfate (PROAIR HFA) 1 Puff Puff 2 PUFF IH Q4H for Dyspean, #1 PUFF 1 PUFF = 90 MCG Prov: KOURTNEY WHITE DO 02/10/20 Famotidine (Pepcid) 20 Mg Tablet 20 MG PO BID, #60 TAB Prov: KOURTNEY WHITE DO 02/10/20 Work/School Note: Work Release Form Date Seen in the Emergency Department: Feb 10, 2020 Return to Work: Feb 12, 2020 KOURTNEY WHITE DO Feb 10, 2020 09:20
[2020-02-10 09:27] LABS: HEMATOCRIT 42 % (40-54); HEMOGLOBIN 14.2 G/DL (13.3-17.7); MEAN CORPUSCULAR HEMOGLOBIN 30 PG (25-34); MEAN CORPUSCULAR VOLUME 89 FL (80-99); WHITE BLOOD COUNT 10.6 10^3/uL (4.3-11.0)
[2020-02-10] MEDS: ASPIRIN 81 MG CHEW (CHILDREN'S ASA) PO ONE ×2 (09:27→09:32)
[2020-02-10 09:28] LABS: BASOPHILS % (AUTO) 0 % (0-10); EOSINOPHILS # (AUTO) 0.3 10^3/uL (0.0-0.3); EOSINOPHILS % (AUTO) 3 % (0-10); LYMPHOCYTES # (AUTO) 2.3 X 10^3 (1.0-4.0); LYMPHOCYTES % (AUTO) 21 % (12-44); MEAN CORPUSCULAR HGB CONC 34 G/DL (32-36); MEAN PLATELET VOLUME 10.9 FL (7.4-10.4); MONOCYTES % (AUTO) 9 % (0-12); NEUTROPHILS % (AUTO) 66 % (42-75); PLATELET COUNT 253 10^3/uL (130-400); RED CELL DISTRIBUTION WIDTH 13.5 % (10.0-14.5)
[2020-02-10] MEDS ORDERED: ASPIRIN 81 MG CHEW (CHILDREN'S ASA) PO ONE (09:30)
[2020-02-10] MEDS ORDERED: NITROGLYCERIN 0.4 MG SL TABS BTL 25'S SL PRN (09:30)
[2020-02-10 09:54] LABS: ALANINE AMINOTRANSFERASE 18 U/L (0-55); ALBUMIN 4.3 GM/DL (3.2-4.5); ALKALINE PHOSPHATASE 114 U/L (40-136); BILIRUBIN,TOTAL 0.3 MG/DL (0.1-1.0); BUN/CREATININE RATIO 20; CALCIUM 9.2 MG/DL (8.5-10.1); CARBON DIOXIDE 23 MMOL/L (21-32); CHLORIDE 102 MMOL/L (98-107); CREATININE SERUM 0.96 MG/DL (0.60-1.30); GFR ESTIMATED > 60; GLUCOSE 110 MG/DL (70-105); POTASSIUM 3.9 MMOL/L (3.6-5.0); SODIUM 138 MMOL/L (135-145); TOTAL PROTEIN 7.2 GM/DL (6.4-8.2)
[2020-02-10] MEDS ORDERED: RT-ALBUINH IH (10:39)
[2020-02-10] MEDS ORDERED: NITR0.4T39 SL (10:39)
[2020-02-10] MEDS ORDERED: FAMO-119 PO (10:39)
[2020-02-10] MEDS ORDERED: ANTACID SUSP 30 ML UDC (MYLANTA) PO ONE (10:45)
[2020-02-10] MEDS ORDERED: LIDOCAINE 2% VISCOUS 15 ML UDC PO ONE (10:45)
[2020-02-10 11:01] VITALS: BP 141/98
--- NOTE | 2020-02-10 12:06 | Diagnostic Imaging Report ---
EXAMINATION: Chest radiograph, portable AP view. DATE: 02/10/2020 9:44 AM hours. INDICATION: 39-year-old male, chest pain. COMPARISON: March 18, 2019. FINDINGS: Heart size and mediastinal contours are unchanged and unremarkable. There is no identified pneumothorax. There is no large pleural effusion. There is no identified focal airspace consolidation. IMPRESSION: No identified acute cardiopulmonary abnormality. Dictated by: Dictated on workstation # [id number]
== END 2020-02-10 11:01 | disposition home or self-care (01) ==
LOC: EDUNIT# 08:59 → ER FS 09:00
DX: R07.9 Chest pain, unspecified (principal); R10.11 Right upper quadrant pain
CPT/HCPCS: 36415; 71045; 80053; 84484; 85025; 85379

== ENCOUNTER 2020-05-21 05:32 | Outpatient (RCR) | payer OTHER ==
[~2020-05-21] VITALS: Ht 160 cm; Wt 86.4 kg
[~2020-05-21 05:32] MED LIST changes: +FAMO-119 PO; +NITR0.4T39 SL; +RT-ALBUINH IH
== END 2020-05-21 13:46 | disposition home or self-care (01) ==
LOC: PREOP 05:32
PROVIDERS: ATTEND Surgery
DX: Z01.812 Encounter for preprocedural laboratory examination (principal); K21.9 Gastro-esophageal reflux disease without esophagitis; K92.1 Melena; K92.0 Hematemesis; Z20.828 Contact with and (suspected) exposure to other viral communicable diseases
CPT/HCPCS: 87635

== ENCOUNTER 2020-05-26 12:55 | Day surgery (SDC) | payer OTHER ==
[~2020-05-26] VITALS: Ht 160 cm; Wt 86.4 kg
[2020-05-26] MEDS ORDERED: LACTATED RINGERS 1,000 ML IV ONE (12:57)
[2020-05-26] MEDS ORDERED: LACTATED RINGERS 1,000 ML IV STA (13:03)
[2020-05-26 13:12] VITALS: BP 134/98
[2020-05-26] MEDS ORDERED: HURRICAINE EXT TUBE (BENZOCAINE) XX PRN (13:15)
[2020-05-26] MEDS ORDERED: proPOfol 200 MG/20 ML (DIPRIVAN) VIAL IV ONE ×4 (13:27→14:32)
[2020-05-26] MEDS ORDERED: MIDAZOLAM 2 MG/2 ML (VERSED) VIAL ONE ×2 (13:28→13:49)
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
--- OUTSIDE RECORDS SUMMARY | 2020-05-26 14:33 | XMS REPORT ---
Author Author Panchito KING Organization 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 [address] [facility] [id number] [address] [place] [id number] 17 Feb, 2020 GERD with esophagitis K21.0 ; Blood clots in stool K92.1 ; Tarry stools K92.1 and Hematemesis with nausea K92.0 [facility] [address] [id number] [address] 04 Feb, 2020 Abscess of neck L02.11 [place] [address] [address] [facility] [id number] [address] [place] [phone] Jan, [facility] [address] [facility] [id number] [address] [place] [phone] May, [facility] [address] [facility] [id number] [address] [place] [phone] Jan, Other eczema L30.8 [facility] [address] [facility] [id number] [address] [place] [phone] Jun, Screen for STD (sexually tra nsmitted disease) V74.5 [place] [address] [address] [facility] [id number] [address] [place] [phone] Feb, [facility] [address] [facility] [id number] [address] [place] [phone] Feb, [facility] [address] [id number] [address] [place] [address], [place] [address] Nov, [facility] [address] [id number] [address] [place] [address], [place] [address] Nov, [facility] [address] [id number] [address] [place] [address], [place] [address] Nov, [facility] [address] [id number] [address] [place] [address], [place] [address] Nov, [facility] [address] [id number] [address] [place] [address], [place] [address] Oct, [facility] [address] [id number] [address] [place] [address], [place] [address] Oct, [facility] [address] [id number] [address] [place] [address], [place] [address] Oct, [facility] [address] [id number] [address] [place] [address], [place] [address] Oct, [facility] [address] [id number] [address] [place] [address], [place] [address] Sep, [facility] [address] [id number] [address] [place] [address], [place] [address] Sep, [facility] [address] [id number] [address] [place] [address], [place] [address] Aug, [facility] [address] [id number] [address] [place] [address], [place] [address] Aug, [facility] [address] [id number] [address] [place] [address], [place] [address] Aug, [facility] [address] [id number] [address] [place] [address], [place] [address] Aug, [facility] [address] [id number] [address] [place] [address], [place] [address] Jul, [facility] [address] [id number] [address] [place] [phone] Jul, [facility] [address] [facility] [id number] [address] [place] [phone] Jun, [facility] [address] [facility] [id number] [address] [place] [phone] Jun, [facility] [address] [facility] [id number] [address] [place] [phone] Jun, [facility] [address] [facility] [id number] [address] [place] [phone] Jun, IMMUNIZATIONS No Known Immunizations SOCIAL HISTORY [...]
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
--- NOTE | 2020-05-26 14:48 | Progress Note-Post Operative ---
Post-Operative Progess Note Surgeon (s)/Perch Machine Inspector (s) Surgeon TULIO YOUNGER DO Perch Machine Inspector: na Pre-Operative Diagnosis hematemesis, epigastric/llq adominal pain, melena Post-Operative Diagnosis hiatal hernia, reflux esophagitis, colon polyps Procedure & Operative Findings Date of Procedure 05/26/20 Procedure Performed/Findings egd c biopsies, colonoscopy c hot bx polypectomy x 3 transverse colon sigmoid snare polypectomy x 2 with susan inking 3 mL distal sigmoid polyp rectal snare polypectomy x 1 Anesthesia Type per [facility] Estimated Blood Loss Estimated blood loss (mL): scant Specimens/Packing Specimens Removed antrum, ge, transverse colon polyps, sigmoid polyps, rectal polyp TULIO YOUNGER DO May 26, 2020 14:48
[2020-05-26] MEDS ORDERED: PANT40TA2 PO (14:49)
--- NOTE | 2020-05-26 14:49 | Discharge Inst-Simple/Standard ---
Discharge Inst-Standard Discharge Medications New, Converted or Re-Newed RX: Transmitted to Pharmacy Patient Instructions/Follow Up Plan of Care/Instructions/FU: 2 weeks Mac Activity as Tolerated: Yes Discharge Diet: Regular Diet TULIO YOUNGER DO May 26, 2020 14:49
[2020-05-26 14:50] VITALS: BP 123/73
--- NOTE | 2020-05-26 15:01 | Anesthesia-General Post-Op ---
MAC Patient Condition Mental Status/LOC: Same as Preop Cardiovascular: Satisfactory Nausea/Vomiting: Absent Respiratory: Satisfactory Pain: Controlled Complications: Absent Post Op Complications Complications None Follow Up Care/Instructions Patient Instructions None needed. Anesthesiology Discharge Order Discharge Order Patient is doing well, no complaints, stable vital signs, no apparent adverse anesthesia problems. GUILHERME MARTE DO May 26, 2020 15:01
[2020-05-26 15:20] VITALS: BP 130/84
[2020-05-26 15:30] VITALS: BP 130/84
--- NOTE | 2020-05-26 19:44 | OPERATIVE REPORT ---
DATE OF SERVICE: 05/26/2020 PREOPERATIVE DIAGNOSES: Hematemesis, epigastric abdominal pain, left lower quadrant abdominal pain, melena. POSTOPERATIVE DIAGNOSES: Hiatal hernia, reflux esophagitis, colon polyps. PROCEDURE: EGD with biopsies, colonoscopy with hot biopsy polypectomy x3 of the transverse colon, sigmoid snare polypectomy x2 and Laura inking with 3 mL of Laura ink at the distal sigmoid polyp and rectal snare polypectomy x1. SURGEON: Tulio Watts DO ANESTHESIA: Per MDA. ESTIMATED BLOOD LOSS: Scant. COMPLICATIONS: None. INDICATIONS: The patient is a 39-year-old male with hematemesis, epigastric and left lower quadrant abdominal pain and having melena. He understands risks and benefits of procedures and wished to proceed with procedures. Consent was signed in the chart. DESCRIPTION OF PROCEDURE: The patient was taken to the endoscopy suite, placed in left lateral recumbent position. Timeout was performed. Scope was inserted in mouth, down the esophagus, stomach and into the duodenum without difficulty. There were no polyps, masses or ulcerations within the duodenum. Scope was then slowly retracted back into the stomach where it was further insufflated. Biopsy of the antrum was obtained. No polyps, masses or ulcerations. Scope was retroflexed hiatal hernia, no other pathology noted. Scope was returned to its normal position, slowly withdrawn to distal esophagus, which had some changes consistent with reflux esophagitis. Biopsies were obtained. Scope was then slowly retracted back until completely removed. Digital rectal exam was performed. There were no palpable polyps, masses or ulcerations. Scope was inserted in the rectum and advanced all the way to cecum with minimal difficulty. Irrigation and suction was used for best visualization. There were no polyps, masses or ulcerations within the cecum, ascending colon and transverse colon, three small polyps were present, which hot biopsy polypectomy was performed. Scope was then continuously retracted back. There were no polyps, mass, ulceration of the descending colon. In the sigmoid colon, slightly about 1 cm sized polyp was present, which snare polypectomy was performed. This was unable to be suctioned into the trap, therefore the scope had to be withdrawn all the way out. The specimen was obtained. Scope was then reinserted to the point where the snare polypectomy was performed. Just distal to this area, was a large polyp, which snare polypectomy was performed. This was also tattooed just distal to this area with 3 mL of Laura ink tattoo. The polyp was suctioned and withdrawn all the way and then the scope was then reinserted to this area and scope was then slowly retracted back into the rectum where another polyp was present, which snare polypectomy was performed. This was able to be suctioned into the trap. Scope was retroflexed noting no other pathology. Scope was returned to its normal position, slowly withdrawn until completely removed. The patient tolerated procedure well without any complications and taken to recovery room in stable condition. RECOMMENDATIONS: The patient will be started on Protonix 40 mg daily. We will see how his symptoms do with this. We will follow up on pathology results. The patient will need repeat colonoscopy in six months. Job ID: [id number] DocumentID: [id number] Dictated Date: 05/26/2020 14:53:30 Inspector Filters Date: 05/26/2020 19:44:45 Dictated By: TULIO WATTS DO
== END 2020-05-26 15:30 | disposition home or self-care (01) ==
LOC: ENDO 12:55
PROVIDERS: ATTEND Surgery
DX: K29.50 Unspecified chronic gastritis without bleeding (principal); D12.3 Benign neoplasm of transverse colon; D12.5 Benign neoplasm of sigmoid colon; D12.8 Benign neoplasm of rectum; K21.0 Gastro-esophageal reflux disease with esophagitis; K44.9 Diaphragmatic hernia without obstruction or gangrene; K92.1 Melena; I10 Essential (primary) hypertension; E66.9 Obesity, unspecified; Z68.33 Body mass index [BMI] 33.0-33.9, adult; Z79.899 Other long term (current) drug therapy; Z88.8 Allergy status to other drugs, medicaments and biological substances
CPT/HCPCS: 88305; 88342

== ENCOUNTER 2020-07-18 19:33 | Emergency (ER) | payer OTHER ==
[~2020-07-18] VITALS: Ht 160 cm; Wt 86.3 kg
[~2020-07-18 19:33] MED LIST changes: +PANT40TA2 PO
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
--- NOTE | 2020-07-18 19:42 | ED General ---
General Chief Complaint: Hip/Pelvic Problems Stated Complaint: GENERAL PROBLEMS History of Present Illness Date Seen by Provider: Jul 18, 2020 Time Seen by Provider: 19:39 Initial Comments 39-year-old male presents for medical clearance for incarceration. Patient was brought in by EMS. EMS and PD and x-ray reports that patient right minh- complaints. The patient was mildly complain of some left foot pain. Upon arrival to the ER patient started complaining of multiple chronic issues. He is complaining of left hip pain, pain in his testicles, postop pain from pain 6 weeks ago. 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 Patient however does not have any acute complaints besides the testicle pain in the left hip pain. Patient is very angry and not very cooperative. History of present illness is limited based on his presentation Allergies and Home Medications Allergies Coded Allergies: haloperidol (Verified Allergy, Unknown, 03/18/19) Home Medications Pantoprazole Sodium 40 Mg Tablet.dr, 40 MG PO DAILY Prescribed by: TULIO YOUNGER on 05/26/20 1449 Patient Home Medication List Home Medication List Reviewed: Yes Review of Systems Review of Systems Constitutional: no symptoms reported; No chills Respiratory: no symptoms reported Cardiovascular: no symptoms reported Gastrointestinal: see HPI Genitourinary: see HPI Musculoskeletal: see HPI Skin: no symptoms reported Psychiatric/Neurological: No Symptoms Reported Hematologic/Lymphatic: No Symptoms Reported Past Fabmkdk-Jgpylg-Gkrdpe Hx Past Med/Social Hx: Reviewed Nursing Past Med/Soc Hx Patient Social History Alcohol Beverage of Choice: Beer Drug of Choice: THC 2nd Hand Smoke Exposure: No Recent Foreign Travel: No Contact w/Someone Who Travel: No Recent Hopitalizations: No Seasonal Allergies Seasonal Allergies: No Past Medical History Surgeries: No Respiratory: No Cardiac: No Neurological: No Genitourinary: No Gastrointestinal: Yes (melena) Gastroesophageal Reflux Musculoskeletal: No Endocrine: No HEENT: No Cancer: No Psychosocial: Yes Anxiety Integumentary: No Blood Disorders: No Physical Exam Vital Signs Capillary Refill : Height, Weight, BMI Height: 5'3.00" Weight: 175lbs. oz. [id number]; 33.75 BMI Method:Stated General Appearance: No Apparent Distress, Other HEENT: PERRL/EOMI Neck: Full Range of Motion, Normal Inspection Respiratory: Lungs Clear, Normal Breath Sounds Cardiovascular: Regular Rate, Rhythm, No Edema Gastrointestinal: Non Tender, Soft Extremity: Normal Capillary Refill, Normal Inspection Neurologic/Psychiatric: No Motor/Sensory Deficits, Normal Mood/Affect, component inspector II- XII Norm as Tested Skin: Normal Color, Warm/Dry Progress/Results/Core Measures Suspected Sepsis SIRS Temperature: Pulse: Respiratory Rate: Blood Pressure / Mean: Results/Orders My Orders Orders - SANDRA MONGE DO Abdomen (Kub) 1 View (07/18/20 19:42) Pelvis With Left Hip 2-3 View (07/18/20 19:42) Vital Signs/I&O Capillary Refill : Progress Note : Time: 19:45 Progress Note Patient refused all medical treatment. They were going to obtain x-rays and he reports he was refusing any would not have any further medical treatment. This was done prior to my ability to finish physical exam and do a testicular and scrotal exam. Patient is stable and will be discharged in the PD custody Departure Impression Primary Impression: Medical clearance for incarceration Disposition: 21 DIS/[address]/LAW ENFORCE Condition: Stable Departure-Patient Inst. Referrals: NO,LOCAL PHYSICIAN (PCP/Family) Primary Care Physician Add. Discharge Instructions: Clearance for incarceration All discharge instructions reviewed with patient and/or family. Voiced understanding. SANDRA MONGE DO Jul 18, 2020 19:42
--- NOTE | 2020-07-18 19:45 | NUR ---
Shruthi Davidson in to take pt to radiology and pt states, "I dont want any xrays. I dont want anything done." Dr. Diaz notified.
[2020-07-18 19:48] VITALS: BP 136/102
--- NOTE | 2020-07-18 19:48 | NUR ---
This RN asked pt to sign AMA form and pt refused stating, "Im not signing anything." [place] on scene witnessed and signed form.
== END 2020-07-18 19:48 ==
LOC: EDUNIT# 19:33 → ER FS 19:35
DX: Z02.89 Encounter for other administrative examinations (principal); M79.672 Pain in left foot; M25.552 Pain in left hip; N50.812 Left testicular pain; N50.811 Right testicular pain; G89.18 Other acute postprocedural pain; K21.9 Gastro-esophageal reflux disease without esophagitis; Z85.028 Personal history of other malignant neoplasm of stomach; Z88.8 Allergy status to other drugs, medicaments and biological substances
CPT/HCPCS: 99283

== ENCOUNTER 2020-08-07 23:19 | Emergency (ER) | payer OTHER ==
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
[2020-08-07 23:29] VITALS: BP 0/0
== END 2020-08-07 23:35 | disposition home or self-care (01) ==
LOC: EDUNIT# 23:19 → ER FS 23:22
DX: S01.81XA Laceration without foreign body of other part of head, initial encounter (principal); S80.211A Abrasion, right knee, initial encounter; K21.9 Gastro-esophageal reflux disease without esophagitis; Z88.8 Allergy status to other drugs, medicaments and biological substances; Z20.828 Contact with and (suspected) exposure to other viral communicable diseases; Y04.2XXA Assault by strike against or bumped into by another person, initial encounter
CPT/HCPCS: 99283

== ENCOUNTER 2021-02-23 10:04 | Emergency (ER) | payer SELFPAY ==
[~2021-02-23] VITALS: Ht 160 cm; Wt 81.6 kg
[2021-02-23 10:08] VITALS: BP 142/93
--- NOTE | 2021-02-23 10:32 | ED Upper Extremity ---
General Chief Complaint: Upper Extremity Stated Complaint: RT CLAVICLE/SHOULDER PAIN Nursing Triage Note: Patient reports right shoulder pain for 1 month. 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 He also reports he has had black tarry stools for 4 days and abdominal pain. He reports he has a history of GI bleed with interventional colonoscopy last summer with Dr. Younger at [facility]. Nursing Sepsis Screen: No Definite Risk History of Present Illness Date Seen by Provider: Feb 23, 2021 Time Seen by Provider: 10:20 Initial Comments 40 y/o male presents w Right shoulder pain for 1 month. Denies fall or injury, but has had similar pain that went away in the past. pain worse at night when sleeping. 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 Takes motrin occasionally for pain. Does not have a PCP and has not recently seen a doctor. Also c/o black stools last 3 days with epigastric pain. Hx of PUD, not taking any medication. Seen in [place] in April 2020 for upper and lower endoscopy. States he had ulcers and polyps. Allergies and Home Medications Allergies Coded Allergies: haloperidol (Verified Allergy, Unknown, 03/18/19) Home Medications Cyclobenzaprine HCl 10 Mg Tablet, 10 MG PO Q8H PRN for SPASMS Prescribed by: KOURTNEY WHITE on 02/23/21 1051 Famotidine 20 Mg Tablet, 20 MG PO HS Prescribed by: KOURTNEY WHITE on 02/23/21 1051 Pantoprazole Sodium 40 Mg Tablet., 40 MG PO DAILY Prescribed by: TULIO YOUNGER on 05/26/20 1449 Pantoprazole Sodium 40 Mg Tablet., 40 MG PO DAILY Prescribed by: KOURTNEY WHITE on 02/23/21 1051 Patient Home Medication List Home Medication List Reviewed: Yes Review of Systems Constitutional: no symptoms reported; No chills, No dizziness, No fever, No malaise, No weakness Respiratory: No cough, No short of breath Cardiovascular: No chest pain, No edema, No syncope Gastrointestinal: abdominal pain; No constipation, No diarrhea, No loss of appetite, No melena; nausea; No vomiting; other (dark stools) Musculoskeletal: No back pain; joint pain (R shoulder) Psychiatric/Neurological: Denies Numbness, Denies Paresthesia, Denies Tremors, Denies Weakness Past Xobeivx-Pztevz-Sdgsnt Hx Past Med/Social Hx: Reviewed Nursing Past Med/Soc Hx Patient Social History Alcohol Use: Occasionally Uses Number of Drinks Today: AA Alcohol Beverage of Choice: Beer Drug of Choice: THC Smoking Status: Never a Smoker 2nd Hand Smoke Exposure: No Recent Infectious Disease Expo: No Recent Hopitalizations: No Seasonal Allergies Seasonal Allergies: No Past Medical History Surgeries: Yes (Unknown cranial surgery) Abdominal Respiratory: No Cardiac: No Neurological: No Seizure Disorder Genitourinary: No Gastrointestinal: Yes (melena) Gastroesophageal Reflux Musculoskeletal: No Endocrine: No HEENT: No Cancer: No Psychosocial: Yes Anxiety Integumentary: No Blood Disorders: No Physical Exam Vital Signs Vital Signs - First Documented 02/23/21 10:08 Temp 36.8 Pulse 104 Resp 18 B/P (MAP) 142/93 (109) Pulse Ox 96 O2 Delivery Room Air Capillary Refill : Less Than 3 Seconds Height, Weight, BMI Height: 5'3.00" Weight: 175lbs. oz. 79.189818xa; 31.00 BMI Method:Stated General Appearance: WD/WN, no apparent distress Neck: full range of motion, supple; No limited range of motion, No lymphadenopathy (R), No lymphadenopathy (L); tender lateral (b/l paraspinal ms and upper trapez ms- right side) Cardiovascular: regular rate, rhythm, no edema, no JVD Respiratory: chest non-tender, lungs clear, normal breath sounds Gastrointestinal: non tender, soft, no organomegaly Back: normal inspection, no CVA tenderness, no vertebral tenderness; No vertebral tenderness; other (tenderness diffuse R shoulder area- ant, post and lateral) Shoulder: No no evidence of injury; normal ROM; No asymmetry, No bone tenderness, No deformity, No ecchymosis; pain, soft tissue tenderness; No swelling Elbow/Forearm: non-tender, no evidence of injury, normal ROM, Right Wrist: Yes normal inspection, Yes non-tender, Yes no evidence of injury, Yes normal ROM Hand: normal inspection, no evidence of injury, normal ROM Neurologic/Tendon: normal sensation, normal motor functions, normal tendon functions, responds to pain Neurologic/Psychiatric: no motor/sensory deficits, alert, normal mood/affect, oriented x 3 Skin: normal color, warm/dry Progress/Results/Core Measures Results/Orders Lab Results Laboratory Tests Test 02/23/21 10:30 Range/Units White Blood Count 7.9 4.3-11.0 10^3/uL Red Blood Count 4.59 4.35-5.85 10^6/uL Hemoglobin 14.2 13.3-17.7 G/DL Hematocrit 42 40-54 % Mean Corpuscular Volume 92 80-99 FL Mean Corpuscular Hemoglobin 31 25-34 PG Mean Corpuscular Hemoglobin Concent 34 32-36 G/DL Red Cell Distribution Width 13.0 10.0-14.5 % Platelet Count 248 130-400 10^3/uL Mean Platelet Volume 11.0 H 7.4-10.4 FL Immature Granulocyte % (Auto) 0 % Neutrophils (%) (Auto) 57 42-75 % Lymphocytes (%) (Auto) 26 12-44 % Monocytes (%) (Auto) 11 0-12 % Eosinophils (%) (Auto) 5 0-10 % Basophils (%) (Auto) 1 0-10 % Neutrophils # (Auto) 4.5 1.8-7.8 X 10^3 Lymphocytes # (Auto) 2.1 1.0-4.0 X 10^3 Monocytes # (Auto) 0.9 0.0-1.0 X 10^3 Eosinophils # (Auto) 0.4 H 0.0-0.3 10^3/uL Basophils # (Auto) 0.0 0.0-0.1 10^3/uL Immature Granulocyte # (Auto) 0.0 0.0-0.1 10^3/uL My Orders Orders - KOURTNEY WHITE DO Cbc With Automated Diff (02/23/21 10:25) Shoulder 3 View Right (02/23/21 10:25) Vital Signs/I&O 02/23/21 10:08 Temp 36.8 Pulse 104 Resp 18 B/P (MAP) 142/93 (109) Pulse Ox 96 O2 Delivery Room Air Blood Pressure Mean: 109 Progress Progress Note : Progress Note Found patient's surgical report from his upper and lower endoscopy April [address] Younger. He did not have any significant upper endoscopy findings other than some esophagitis. However, he did have multiple colon polyps which were resected and sent for pathology. He was advised to follow-up 6 months later for repeat colonoscopy and patient has never followed up. Discussed this with patient, he agrees to make an appointment to see Dr. Younger in follow-up. We will restart his Protonix and add Pepcid at night. Encourage not to take any aspirin or NSAIDs (patient states he does not take them very often). Advised moist heat during the day for his right shoulder pain and icing after work. Also advised to establish a primary care provider for his shoulder pain. Departure Impression Primary Impression: Shoulder tendonitis Qualified Codes: M77.8 - Other enthesopathies, not elsewhere classified Disposition: HOME, SELF-CARE Condition: Stable Departure-Patient Inst. Decision time for Depature: 10:51 Referrals: [facility]/TULIO MILLER,LOCAL PHYSICIAN (PCP) Primary Care Physician Patient Instructions: Shoulder Pain (DC) Add. Discharge Instructions: Call today to set up an appointment to establish a primary care physician at the [facility]. REturn to the nearest ER if you have onset of felling light headed, dizzy or short of air. CALL Dr Sanches office to schedule your follow up appointment as you were advised to have a repeat colonoscopy 6 months after your April 2020 procedure. All discharge instructions reviewed with patient and/or family. Voiced understanding. Scripts Cyclobenzaprine HCl (Cyclobenzaprine HCl) 10 Mg Tablet 10 MG PO Q8H PRN for SPASMS, #15 TAB 0 Refills Prov: KOURTNEY WHITE DO 02/23/21 Famotidine (Pepcid) 20 Mg Tablet 20 MG PO HS, #30 TAB Prov: KOURTNEY WHITE DO 02/23/21 Pantoprazole Sodium (Protonix) 40 Mg Tablet. 40 MG PO DAILY, #30 TAB Prov: ROVENSTINEKOURTNEY DO 02/23/21 ROVENSTINEKOURTNEY DO Feb 23, 2021 10:32
[2021-02-23 10:38] LABS: HEMOGLOBIN 14.2 G/DL (13.3-17.7); MEAN CORPUSCULAR HEMOGLOBIN 31 PG (25-34); WHITE BLOOD COUNT 7.9 10^3/uL (4.3-11.0)
[2021-02-23 10:39] LABS: BASOPHILS % (AUTO) 1 % (0-10); EOSINOPHILS % (AUTO) 5 % (0-10); HEMATOCRIT 42 % (40-54); LYMPHOCYTES % (AUTO) 26 % (12-44); MEAN CORPUSCULAR HGB CONC 34 G/DL (32-36); MEAN CORPUSCULAR VOLUME 92 FL (80-99); MONOCYTES % (AUTO) 11 % (0-12); NEUTROPHILS % (AUTO) 57 % (42-75); PLATELET COUNT 248 10^3/uL (130-400)
[2021-02-23 10:40] LABS: EOSINOPHILS # (AUTO) 0.4 10^3/uL (0.0-0.3); LYMPHOCYTES # (AUTO) 2.1 X 10^3 (1.0-4.0); MONOCYTES # (AUTO) 0.9 X 10^3 (0.0-1.0); NEUTROPHILS # (AUTO) 4.5 X 10^3 (1.8-7.8)
[2021-02-23] MEDS ORDERED: FAMO-119 PO (10:51)
[2021-02-23] MEDS ORDERED: CYCL10TA9 PO (10:51)
[2021-02-23] MEDS ORDERED: PANT40TA2 PO (10:51)
--- NOTE | 2021-02-23 10:51 | Diagnostic Imaging Report ---
HISTORY: Right shoulder pain. COMPARISON: None. TECHNIQUE: Three views of the right shoulder. FINDINGS: No acute fracture or dislocation is seen in the right shoulder. Alignment is normal. Joint spaces are preserved. IMPRESSION: 1. No acute osseous abnormality is seen in the right shoulder. Dictated by: Dictated on workstation # [id number]
== END 2021-02-23 10:58 | disposition home or self-care (01) ==
LOC: EDUNIT# 10:04 → ER FS 10:06
DX: M77.8 Other enthesopathies, not elsewhere classified (principal); K21.9 Gastro-esophageal reflux disease without esophagitis; Z88.8 Allergy status to other drugs, medicaments and biological substances
CPT/HCPCS: 36415; 73030; 85025

== ENCOUNTER 2021-08-23 10:45 | Emergency (ER) | payer OTHER ==
[~2021-08-23] VITALS: Ht 160 cm; Wt 77.0 kg
[~2021-08-23 10:45] MED LIST changes: +CYCL10TA9 PO
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
[2021-08-23] MEDS ORDERED: ORPHENADRINE 60 MG/2 ML (NORFLEX) AMP (ED ONLY) IM STA (11:30)
[2021-08-23] MEDS ORDERED: ONDANSETRON 4 MG (ZOFRAN) ORAL DISSOLVE TAB PO STA (11:30)
[2021-08-23] MEDS ORDERED: morphine INJ 10 MG/ML 1ML (SYR OR VIAL) IM STA (11:30)
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
[2021-08-23] MEDS ORDERED: KETOROLAC 60 MG/2 ML VIAL IM STA (12:35)
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
[2021-08-23] MEDS ORDERED: CYCL10TA9 PO (12:48)
[2021-08-23] MEDS ORDERED: ACHD5005 PO (12:48)
[2021-08-23 13:04] VITALS: BP 167/99
== END 2021-08-23 13:04 | disposition home or self-care (01) ==
LOC: EDUNIT# 10:45 → ER FS 10:46
DX: S16.1XXA Strain of muscle, fascia and tendon at neck level, initial encounter (principal); S29.012A Strain of muscle and tendon of back wall of thorax, initial encounter; S39.012A Strain of muscle, fascia and tendon of lower back, initial encounter; M54.16 Radiculopathy, lumbar region; R51.9 Headache, unspecified; K21.9 Gastro-esophageal reflux disease without esophagitis; Z87.820 Personal history of traumatic brain injury; Z79.899 Other long term (current) drug therapy; V89.2XXA Person injured in unspecified motor-vehicle accident, traffic, initial encounter
CPT/HCPCS: 70450; 72125; 72128; 72131; 72192; 76870; 99283; L0150

== ENCOUNTER 2022-05-19 00:28 | Emergency (ER) | payer OTHER ==
[~2022-05-19 00:28] MED LIST changes: +ACHD5005 PO; +CYCL10TA25 PO; -CYCL10TA9 PO
[2022-05-19] MEDS ORDERED: WATER (STERILE) FOR INJ 10 ML BTL INJ SCH (00:45)
[2022-05-19] MEDS ORDERED: MIDAZOLAM 5 MG/5 ML (VERSED) VIAL INJ ONE (00:45)
[2022-05-19] MEDS ORDERED: ZIPRASIDONE 20 MG INJ (GEODON) VIAL IM ONE (00:45)
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
[2022-05-19] MEDS ORDERED: CEPH500T PO (01:32)
[2022-05-19] MEDS ORDERED: RX-CEPHALEXIN (KEFLEX) 250 MG CAP PPK#4 PO STA (01:34)
== END 2022-05-19 01:42 | disposition home or self-care (01) ==
LOC: EDUNIT# 00:28 → ER FS 00:31
DX: S51.811A Laceration without foreign body of right forearm, initial encounter (principal); S61.432A Puncture wound without foreign body of left hand, initial encounter; S31.010A Laceration without foreign body of lower back and pelvis without penetration into retroperitoneum, initial encounter; F10.129 Alcohol abuse with intoxication, unspecified; Z28.310 Unvaccinated for COVID-19; X99.9XXA Assault by unspecified sharp object, initial encounter
CPT/HCPCS: 12032

== ENCOUNTER 2022-12-24 10:15 | Emergency (ER) | payer SELFPAY ==
[~2022-12-24] VITALS: Ht 165.1 cm; Wt 91.0 kg
[~2022-12-24 10:15] MED LIST changes: +ALBU8.5H6 IH; +CEPH500T PO; -RT-ALBUINH IH
[2022-12-24] MEDS ORDERED: NS IV 1000 ML 1,000 ML IV STA (10:40)
[2022-12-24] MEDS ORDERED: fentaNYL INJ 100 MCG/2 ML AMP IVP STA ×2 (10:40→12:48)
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
[2022-12-24] MEDS ORDERED: HOLD METFORMIN - RECEIVED CONTRAST 20 ML VIAL IV SCH (11:00)
[2022-12-24] MEDS ORDERED: IOHEXOL 350 MG/ML 100 ML (OMNIPAQUE 350) VIAL IV ONE (11:00)
[2022-12-24] MEDS ORDERED: NS 100 ML (IVPB) BAG IV ONE (11:00)
[2022-12-24 11:02] LABS: BASOPHILS # (AUTO) 0.1 10^3/uL (0.0-0.1); BASOPHILS % (AUTO) 1 % (0-10); EOSINOPHILS # (AUTO) 0.4 10^3/uL (0.0-0.3); EOSINOPHILS % (AUTO) 6 % (0-10); HEMATOCRIT 41 % (40-54); LYMPHOCYTES # (AUTO) 2.7 10^3/uL (1.0-4.0); LYMPHOCYTES % (AUTO) 42 % (12-44); MEAN CORPUSCULAR HEMOGLOBIN 30 pg (25-34); MEAN CORPUSCULAR HGB CONC 34 g/dL (32-36); MEAN CORPUSCULAR VOLUME 88 fL (80-99); MEAN PLATELET VOLUME 10.5 fL (9.0-12.2); MONOCYTES # (AUTO) 0.7 10^3/uL (0.0-1.0); MONOCYTES % (AUTO) 11 % (0-12); NEUTROPHILS # (AUTO) 2.6 10^3/uL (1.8-7.8); NEUTROPHILS % (AUTO) 41 % (42-75); PLATELET COUNT 274 10^3/uL (130-400); WHITE BLOOD COUNT 6.4 10^3/uL (4.3-11.0)
[2022-12-24 11:09] LABS: ALBUMIN 4.3 GM/DL (3.2-4.5); POTASSIUM 4.4 MMOL/L (3.6-5.0)
[2022-12-24 11:10] LABS: CALCIUM 8.6 MG/DL (8.5-10.1)
[2022-12-24 11:11] LABS: TOTAL PROTEIN 7.5 GM/DL (6.4-8.2)
[2022-12-24 11:13] LABS: BILIRUBIN,TOTAL 0.7 MG/DL (0.1-1.0)
[2022-12-24 11:15] LABS: CREATININE SERUM 1.03 MG/DL (0.60-1.30)
--- NOTE | 2022-12-24 11:30 | Diagnostic Imaging Report ---
EXAMINATION: CT head, face and CT cervical spine without contrast. TECHNIQUE: Multiple contiguous axial images were obtained through the face, brain and cervical spine without the use of intravenous contrast. Sagittal and coronal reformations through the cervical spine were then performed. All CT scans use one or more of the following dose optimizing techniques: automated exposure control, MA and/or KvP adjustment based on patient size and exam type or iterative reconstruction. HISTORY: Head and neck and face pain after injury. COMPARISON: 08/23/2021 FINDINGS: HEAD: The ventricles and sulci are normal. No abnormal attenuation of brain parenchyma is present. No acute intracranial hemorrhage or abnormal extra-axial fluid collections are present. No hyperdense vessel. The calvarium is intact. The mastoid air cells are clear. Mucosal thickening of the paranasal sinuses. The orbits are normal. C-SPINE: Vertebral body height and alignment are preserved. No acute fracture, dislocation, or destructive osseous process. Congenital non-fusion of the posterior arch of C1. No significant facet hypertrophy. No significant central canal or neuroforaminal stenosis. The paraspinous soft tissues are normal. The visualized thyroid gland is normal. The visualized lung apices are normal. FACE: Mildly displaced fractures of the nasal bones which may have been present on a prior CT of 08/23/2021. There continues to be significant leftward deviation of the nasal septum which is also unchanged. No other acute fracture seen within the face.. Mandible and maxillae are normal. Zygomatic arches are normal. Pterygoid plates are normal. There is right facial soft tissue swelling and small hematoma. IMPRESSION: 1. No acute intracranial abnormality. 2. No cervical spine fracture. 3. Fractures of the nasal bones which do not appear to be significantly changed from 08/23/2021 and may be chronic. No other acute osseous abnormality seen within the face. 4. Right facial soft tissue swelling and hematoma. Dictated by: Dictated on workstation # [id number]
--- NOTE | 2022-12-24 11:45 | Diagnostic Imaging Report ---
EXAMINATION: CT chest, abdomen and pelvis with intravenous contrast. TECHNIQUE: Multiple contiguous axial images were obtained through the chest, abdomen and pelvis after the uneventful administration of intravenous contrast. All CT scans use one or more of the following dose optimizing techniques: automated exposure control, MA and/or KvP adjustment based on patient size and exam type or iterative reconstruction. HISTORY: Chest and abdominal pain after injury COMPARISON: None available. FINDINGS: Thyroid: The visualized thyroid gland is normal. Mediastinum: Heart size is normal without significant pericardial effusion. The aorta is normal in caliber. No suspicious lymphadenopathy. Lungs and airways: The lungs are clear without consolidation, pleural effusion, or pneumothorax. There is atelectasis within the dependent lungs. The airways are normal. Solid organs: The liver is normal without focal lesion. The gallbladder is normal. There is no biliary ductal dilation. Pancreas is normal. Spleen is normal. Adrenal glands are normal. The kidneys are normal without hydronephrosis. Bowel: The stomach and small bowel are normal without obstruction. The colon and appendix are normal. Peritoneum: There is no intraperitoneal free fluid or free air. No suspicious lymphadenopathy. Vasculature: Normal without aneurysm. Musculoskeletal: No suspicious osseous lesion or compression fracture. Pelvis: The prostate gland is normal. The urinary bladder is normal. IMPRESSION: 1. No acute abnormality in the chest, abdomen, or pelvis. Dictated by: Dictated on workstation # [id number]
[2022-12-24] MEDS ORDERED: KETOROLAC 30 MG/ML VIAL IVP STA (12:48)
[2022-12-24] MEDS ORDERED: ORPHENADRINE 60 MG/2 ML (NORFLEX) AMP (ED ONLY) IV STA (12:48)
[2022-12-24] MEDS ORDERED: HYDROcodone/APAP 5 MG/325 MG (LORTAB) TAB PO ONE (13:00)
[2022-12-24] MEDS ORDERED: CYCL10TA25 PO (13:13)
[2022-12-24] MEDS ORDERED: ACHD5005 PO (13:13)
[2022-12-24 13:23] VITALS: BP 130/108
== END 2022-12-24 13:23 | disposition home or self-care (01) ==
LOC: EDUNIT# 10:15 → ER 10:17
DX: S09.90XA Unspecified injury of head, initial encounter (principal); S00.83XA Contusion of other part of head, initial encounter; S20.212A Contusion of left front wall of thorax, initial encounter; S30.1XXA Contusion of abdominal wall, initial encounter; S80.12XA Contusion of left lower leg, initial encounter; S80.11XA Contusion of right lower leg, initial encounter; S50.12XA Contusion of left forearm, initial encounter; S50.11XA Contusion of right forearm, initial encounter; R40.2362 Coma scale, best motor response, obeys commands, at arrival to emergency department; R40.2142 Coma scale, eyes open, spontaneous, at arrival to emergency department; R40.2252 Coma scale, best verbal response, oriented, at arrival to emergency department; E87.8 Other disorders of electrolyte and fluid balance, not elsewhere classified; V57.5XXA Driver of pick-up truck or van injured in collision with fixed or stationary object in traffic accident, initial encounter; Y92.410 Unspecified street and highway as the place of occurrence of the external cause
CPT/HCPCS: 36415; 70450; 70486; 71260; 72125; 74177; 80053; 85025